=== PATIENT | female | born 1950 | race Two or more races ===

== ENCOUNTER 2017-03-26 17:38 | Inpatient (IN) | payer MEDICAID, OTHER ==
[~2017-03-26] VITALS: Ht 154.9 cm; Wt 68.0 kg
[~2017-03-26 17:38] MED LIST: ASPI81TA2 PO; ATOR40TA PO; CARV3.12 PO; LANS30CA62 PO; LEVOTHYROXINE SODIUM 25 MCG TABLET PO SCH; OMEG-9 PO; VALS160T2 PO
--- NOTE | 2017-03-26 17:38 | NUR ---
PEYTON BAIN DUE TO WEAKNESS, PATIENT IS AAO3, UKRAINIAN SPEAKING ONLY. APPEARS IN NO APPRENT DISTRESS, RESPIRATION EVEN AND UNLABORED. PATIENT DENIES CHEST PAIN. SATING WELL ON ROOM AIR. REPORTED NAUSEA, DENIES VOMITTING,. SKIN IS WARM TO TOUCH AND NON DIAPHORETIC. PATIENT IS AFEBRILE. VSS, GOWNED AND PLACED PT ON TELE MONITOR. PENDING MD DE GUZMAN
--- NOTE | 2017-03-26 17:40 | NUR ---
IV ACCESSED TO LAC 20. BLOOD SAMPLE SENT TO LAB
[2017-03-26 17:55] LABS: BASOPHILS % (AUTO) 0.4 % (0.0-2.0); EOSINOPHILS # (AUTO) 0.4 /CMM (0.0-0.7); EOSINOPHILS % (AUTO) 4.6 % (0.0-6.0); HEMATOCRIT 33 % (33-45); HEMOGLOBIN 10.8 g/dL (11.5-14.8); LYMPHOCYTES # (AUTO) 1.9 /CMM (0.8-4.8); LYMPHOCYTES % (AUTO) 20.8 % (20.0-44.0); MEAN CORPUSCULAR HEMOGLOBIN 28 PG (26.0-33.0); MEAN CORPUSCULAR HGB CONC 33 g/dl (31.0-36.0); MEAN CORPUSCULAR VOLUME 85 fL (82-100); MONOCYTES # (AUTO) 0.3 /CMM (0.1-1.30); MONOCYTES % (AUTO) 3.3 % (2.0-12.0); NEUTROPHILS # (AUTO) 6.6 /CMM (1.8-8.9); NEUTROPHILS % (AUTO) 70.9 % (43.0-81.0); PLATELET COUNT (AUTO) 287 /CMM (150-450); RDW COEFFICIENT OF VARIATION 13.5 (11.5-15.0); RED BLOOD CELL COUNT(AUTO) 3.91 MIL/uL (4.0-5.2); WHITE BLOOD COUNT (AUTO) 9.2 K/uL (4.3-11.0)
[2017-03-26 18:05] LABS: CALCIUM, SERUM 8.1 mg/dL (8.5-10.1); CREATININE 3.6 mg/dL (0.6-1.3); POTASSIUM 4.3 mmol/L (3.5-5.1)
[2017-03-26 18:13] LABS: INR 0.94 (0.87-1.13); PROTHROMBIN TIME 9.8 SECS (9.5-12.7)
[2017-03-26 18:17] LABS: BILIRUBIN,TOTAL 0.2 mg/dL (0.2-1.0); TOTAL PROTEIN, SERUM 6.4 g/dL (6.4-8.2)
--- NOTE | 2017-03-26 18:54 | NUR ---
URINE SAMPLE SENT TO LAB
[2017-03-26] MEDS ORDERED: hydrALAZINE HCL IV 20 MG VIAL ONE ×2 (19:34→19:35)
[2017-03-26 19:43] LABS: APPEARANCE,URINE Slightly Cloudy (CLEAR); BILIRUBIN,URINE Negative (NEGATIVE); BLOOD, URINE Moderate Ery/uL (NEGATIVE); COLOR,URINE Light yellow (YELLOW); KETONES,URINE Negative (NEGATIVE); LEUKOCYTE ESTERASE ,URINE Negative (NEGATIVE); NITRITE, URINE Negative (NEGATIVE); PROTEIN,URINE >=300 mg/dl (NEGATIVE); UROBILINOGEN,URINE 0.2 EU/dL (0.2)
[2017-03-26 19:48] LABS: UGLUCOSE 100 MG/DL mg/dL (NEGATIVE)
[2017-03-26 20:00] LABS: ADD URINE CULTURE YES; BACTERIA,URINE Many /HPF (None Seen); SQUAMOUS EPITHELIAL CELL,UR Few /HPF (None Seen); URINE AMORPHOUS URATE Moderate /HPF (None Seen); WBC,URINE 21-50 /HPF (0-3)
[2017-03-26] MEDS ORDERED: hydrALAZINE HCL IV 20 MG VIAL IV ONE (20:00)
--- NOTE | 2017-03-26 20:35 | NUR ---
Report given to ronaldo hernandez for admission.
--- NOTE | 2017-03-26 21:07 | NUR ---
PAGED DR HERNANDEZ
[2017-03-26] MEDS ORDERED: ONDANSETRON HCL/PF 4 MG/2 ML VIAL ONE (21:18)
--- NOTE | 2017-03-26 21:24 | NUR ---
zofran 4mg ivp given on the lac g20 for nausea per verbal order of dr Israel.
[2017-03-26 21:35] VITALS: BP 138/84
--- NOTE | 2017-03-26 21:35 | NUR ---
COUPON MANIFEST CLERK NOTES RECEIVED PT FROM ER VIA WC. A/O X 3 , LUXEMBOURGISH SPEAKING. AND STEP DAUGHTER AT BED SIDE. PT WITH NO DISTRESS, NO SOB NOTED AT THIS TIME. PT IS AMBULATORY. IV SITE ON LAC G# 20, INTACT AND PATENT, NO S/S OF INFILTRATION NOTED. BODY ASSESSMENT DONE. DENIES ANY PAIN OR DISCOMFORT AT THIS TIME. ALL NEEDS ATTENDED . KEPT COMFORTABLE. SAFETY PRECAUTIONS OBSERVED. CALL LIGHT WITHIN REACH . WILL CONTINUE TO MONITOR.
[2017-03-26] MEDS ORDERED: ZOLPIDEM TARTRATE 5 MG TABLET PO PRN (22:00)
[2017-03-26] MEDS ORDERED: CEFTRIAXONE 1 G in IV D5W 50 ML IV SCH (22:00)
[2017-03-26] MEDS ORDERED: MAGNESIUM HYDROXIDE 30 ML UDC PO PRN (22:00)
[2017-03-26] MEDS ORDERED: ONDANSETRON HCL/PF 4 MG/2 ML VIAL IVP PRN (22:00)
[2017-03-26] MEDS ORDERED: MAG HYDROX/AL HYDROX/SIMETH 30 ML UDC PO PRN (22:00)
[2017-03-26] MEDS ORDERED: Z GUARD REMEDY 2 OZ OINT TP PRN (22:00)
[2017-03-26] MEDS ORDERED: ACETAMINOPHEN 325 MG TABLET PO PRN (22:00)
[2017-03-26] MEDS ORDERED: HYDROCODONE/APAP 5/325MG 1 EACH TABLET PO PRN (22:00)
[2017-03-26] MEDS ORDERED: PANTOPRAZOLE 40 MG TABLET.DR PO ONE (22:25)
[2017-03-26] MEDS ORDERED: IV D5W 50 ML IV ONE (22:26)
[2017-03-26] MEDS ORDERED: CEFTRIAXONE 1 G VIAL ONE (22:26)
[2017-03-26] MEDS ORDERED: IV NS 0.9% 1,000 ML ONE (22:27)
[2017-03-26] MEDS ORDERED: SECONDARY IV SET 1 EA INFUS.SET MC ONE (22:27)
[2017-03-26] MEDS ORDERED: IV SET PRIMARY PUMP SET 1 EA INFUS.SET MC ONE (22:27)
[2017-03-26] MEDS: IV NS 0.9% 1,000 ML IV PRN (22:54)
[2017-03-26] MEDS: PANTOPRAZOLE 40 MG TABLET.DR PO SCH (22:54)
[2017-03-27] VITALS (9 sets, daily range): BP systolic 133–167; BP diastolic 71–84
--- NOTE | 2017-03-27 06:26 | NUR ---
LCPC NOTES PT IN BED ASLEEP AT THIS TIME, AROUSES EASILY. A/O X 3 , FAROESE SPEAKING. PT WITH NO DISTRESS, NO SOB NOTED AT THIS TIME. PT IS AMBULATORY. IV SITE ON LAC G# 20, INTACT AND PATENT, NO S/S OF INFILTRATION NOTED. NO S/S OF HYPO/ HYPERGLYCEMIA NOTED. DENIES ANY PAIN OR DISCOMFORT AT THIS TIME. ALL NEEDS ATTENDED . KEPT COMFORTABLE. SAFETY PRECAUTIONS OBSERVED. CALL LIGHT WITHIN REACH . WILL ENDORSE TO NEXT SHIFT FOR JOSE.
[2017-03-27 06:36] LABS: BASOPHILS % (AUTO) 0.5 % (0.0-2.0); EOSINOPHILS # (AUTO) 0.4 /CMM (0.0-0.7); EOSINOPHILS % (AUTO) 4.8 % (0.0-6.0); HEMATOCRIT 29 % (33-45); HEMOGLOBIN 9.3 g/dL (11.5-14.8); LYMPHOCYTES # (AUTO) 1.7 /CMM (0.8-4.8); LYMPHOCYTES % (AUTO) 21.6 % (20.0-44.0); MEAN CORPUSCULAR HEMOGLOBIN 28 PG (26.0-33.0); MEAN CORPUSCULAR HGB CONC 32 g/dl (31.0-36.0); MEAN CORPUSCULAR VOLUME 86 fL (82-100); MONOCYTES # (AUTO) 0.4 /CMM (0.1-1.30); MONOCYTES % (AUTO) 5.1 % (2.0-12.0); NEUTROPHILS # (AUTO) 5.3 /CMM (1.8-8.9); PLATELET COUNT (AUTO) 249 /CMM (150-450); RDW COEFFICIENT OF VARIATION 14.5 (11.5-15.0); RED BLOOD CELL COUNT(AUTO) 3.37 MIL/uL (4.0-5.2); WHITE BLOOD COUNT (AUTO) 7.8 K/uL (4.3-11.0)
[2017-03-27 07:08] LABS: CALCIUM, SERUM 7.6 mg/dL (8.5-10.1); CREATININE 3.4 mg/dL (0.6-1.3); PHOSPHORUS 4.1 mg/dL (2.5-4.9); THYROID STIMULATING HORMONE 19.3 uIU/mL (0.358-3.74)
--- NOTE | 2017-03-27 07:30 | NUR ---
SCHOOL ADMINISTRATOR NOTES RECIEVE PT IN BED ASLEEP, AROUSES EASILY. A/O X 3 , MALDIVIAN SPEAKING. ON RA WITH NO DISTRESS, NO SOB NOTED AT THIS TIME. TELEMETRY READS SR HR 81, DENIES ANY DISCOMFORT, WITH NS @ 100 ML/HR TO LEFT AC 20G IV ACCESS, SITE CLEAR. ON CLEAR LIQUID DIET, AMBULATORY, DISCUSS PLAN OF CARE, VERBALIZED UNDERSTANDING WITH WEDDING COORDINATOR AT BEDSIDE. BED LOWEST POSITION AND LOCKED. SIDE RAILS UP X2, CALL LIGHT WITHIN REACH, WILL CONTINUE TO MONITOR..
[2017-03-27] MEDS: PANTOPRAZOLE 40 MG TABLET.DR PO SCH (08:54)
[2017-03-27] MEDS: CARVEDILOL 3.125 MG TABLET PO SCH ×2 (08:59→17:09)
[2017-03-27] MEDS ORDERED: [UNRECOGNIZED DRUG - OTHER] PO SCH (09:00)
[2017-03-27] MEDS ORDERED: OMEGA PO SCH (09:00)
[2017-03-27] MEDS ORDERED: DHA PO SCH (09:00)
[2017-03-27] MEDS ORDERED: FISH OIL PO SCH (09:00)
[2017-03-27] MEDS ORDERED: VALSARTAN 80 MG TABLET PO SCH (09:00)
[2017-03-27] MEDS ORDERED: EPA PO SCH (09:00)
[2017-03-27] MEDS: ASPIRIN 81 MG TAB.CHEW PO SCH (09:03)
--- NOTE | 2017-03-27 09:30 | NUR ---
MS RN NOTE D/C TELEMETRY @ [address] BRIZUELA. ADMINISTERED DUE MEDS.
[2017-03-27] MEDS: IV NS 0.9% 1,000 ML IV PRN ×2 (10:38→21:31)
[2017-03-27] MEDS ORDERED: FURO-145 PO (11:05)
[2017-03-27] MEDS ORDERED: LOSA50TA21 PO (11:05)
[2017-03-27] MEDS ORDERED: PENT400T2 PO (11:05)
[2017-03-27] MEDS: ATORVASTATIN 40 MG TABLET PO SCH (17:05)
--- NOTE | 2017-03-27 18:39 | NUR ---
MS RN CLOSING NOTES PT RESTING IN BED. A/O X 4. ON RA WITH NO DISTRESS. DENIES ANY DISCOMFORT, WITH NS @ 100 ML/HR TO LEFT AC 20G IV ACCESS, SITE CLEAR. ON CLEAR LIQUID DIET, AMBULATORY. BED LOWEST POSITION AND LOCKED. SIDE RAILS UP X2, CALL LIGHT WITHIN REACH, ALL NEEDS MET. WILL ENDORSE TO NEXT SHIFT FOR CONTINUITY OF CARE...
--- NOTE | 2017-03-27 19:20 | NUR ---
MS RN NOTES RECEIVED PT IN BED, RESTING COMFORTABLY AT THIS TIME, AROUSES EASILY. A/O X 3. VERBALLY RESPONSIVE IN HEBREW. NO DISTRESS, NO SOB NOTED. ON CLEAR LIQUID DIET. IV SITE ON LAC G # 20 INTACT AND PATENT, NO S/S OF INFILTRATION NOTED. IVF INFUSING WELL. ALL NEEDS ATTENDED. DENIES ANY PAIN OR DISCOMFORT AT THIS TIME. SAFETY PRECAUTIONS OBSERVED. CALL LIGHT WITHIN REACH. WILL CONTINUE TO MONITOR.
[2017-03-27] MEDS: CEFTRIAXONE 1 G in IV D5W 50 ML IV SCH (23:28)
[2017-03-28 06:28] LABS: BASOPHILS % (AUTO) 0.6 % (0.0-2.0); EOSINOPHILS # (AUTO) 0.5 /CMM (0.0-0.7); EOSINOPHILS % (AUTO) 7.7 % (0.0-6.0); HEMATOCRIT 29 % (33-45); HEMOGLOBIN 9.2 g/dL (11.5-14.8); LYMPHOCYTES # (AUTO) 1.5 /CMM (0.8-4.8); LYMPHOCYTES % (AUTO) 20.5 % (20.0-44.0); MEAN CORPUSCULAR HEMOGLOBIN 28 PG (26.0-33.0); MEAN CORPUSCULAR HGB CONC 32 g/dl (31.0-36.0); MEAN CORPUSCULAR VOLUME 86 fL (82-100); MONOCYTES # (AUTO) 0.4 /CMM (0.1-1.30); MONOCYTES % (AUTO) 5.5 % (2.0-12.0); NEUTROPHILS # (AUTO) 4.7 /CMM (1.8-8.9); NEUTROPHILS % (AUTO) 65.7 % (43.0-81.0); PLATELET COUNT (AUTO) 229 /CMM (150-450); RED BLOOD CELL COUNT(AUTO) 3.33 MIL/uL (4.0-5.2); WHITE BLOOD COUNT (AUTO) 7.1 K/uL (4.3-11.0)
--- NOTE | 2017-03-28 06:44 | NUR ---
MS RN NOTES PT IN BED, ASLEEP AT THIS TIME, AROUSES EASILY. A/O X 3. VERBALLY RESPONSIVE IN [place]. NO DISTRESS, NO SOB NOTED. REMAINS ON CLEAR LIQUID DIET. IV SITE ON LAC G # 20 INTACT AND PATENT, NO S/S OF INFILTRATION NOTED. IVF INFUSING WELL. ALL NEEDS ATTENDED. DENIES ANY PAIN OR DISCOMFORT AT THIS TIME. ABLE TO VOID FREELY WITH YELLOW URINE, NO DYSURIA NOTED. SAFETY PRECAUTIONS OBSERVED. CALL LIGHT WITHIN REACH. WILL ENDORSE TO NEXT SHIFT FOR JOSE.
[2017-03-28 06:55] LABS: CALCIUM, SERUM 7.3 mg/dL (8.5-10.1); CREATININE 3.4 mg/dL (0.6-1.3); MAGNESIUM 1.8 mg/dL (1.8-2.4); PHOSPHORUS 4.5 mg/dL (2.5-4.9); POTASSIUM 4.1 mmol/L (3.5-5.1)
--- NOTE | 2017-03-28 07:40 | NUR ---
AM RN NOTE Received patient sleeping comfortably in her bed arouses upon touch. Skin warm and dry to touch. IV site intact and patent. Bed in low locked position. Will continue to monitor.
[2017-03-28 08:00] VITALS: BP 163/91
[2017-03-28] MEDS: CARVEDILOL 3.125 MG TABLET PO SCH ×2 (08:14→16:35)
[2017-03-28] MEDS: PANTOPRAZOLE 40 MG TABLET.DR PO SCH (08:14)
[2017-03-28] MEDS: ASPIRIN 81 MG TAB.CHEW PO SCH (08:14)
--- NOTE | 2017-03-28 10:08 | NUR ---
WOUND CARE CONSULT: PT SEEN FOR TOENAILS PER WOUND CONSULT. PRESENTS WITH LIU SCORE OF 20. PT NOTED TO HAVE THICKENED TOENAILS WHICH HAVE BEEN CARED FOR BY SIMULATION TECHNICIAN. LEFT GREAT TOENAIL NOTED TO HAVE PURPLE STAIN. NO TENDERNESS NOTED. PT STATES IS SEEING HER OWN SIMULATION TECHNICIAN. WILL SEE PRN.
[2017-03-28] MEDS ORDERED: LEVOTHYROXINE SODIUM 100 MCG TABLET PO ONE (11:00)
[2017-03-28] MEDS ORDERED: LEVO25TA9 PO (11:26)
[2017-03-28 16:00] VITALS: BP 184/87
[2017-03-28] MEDS: ATORVASTATIN 40 MG TABLET PO SCH (16:45)
[2017-03-28] MEDS: CLONIDINE HCL 0.1 MG TABLET PO PRN (16:45)
--- NOTE | 2017-03-28 16:50 | NUR ---
AM RN NOTE Patient awake, denies any pain or discomfort at this time. V/S BP184/87 T97.6 P64 R16. Routine Coreg given as ordered and called Trav NETWORK ARCHITECT with new order obtained for Catapres, noted and carried out. Catapres PO given as ordered, will monitor for effectiveness.
[2017-03-28] MEDS: IV NS 0.9% 1,000 ML IV PRN (17:15)
--- NOTE | 2017-03-28 17:45 | NUR ---
AM RN NOTE BP rechecked 164/82. Pt denies any pain or discomfort at this time.
--- NOTE | 2017-03-28 18:39 | NUR ---
AM RN NOTE Patient lying in her bed watching TV no acute distress noted. Will endorse care to next shift.
--- NOTE | 2017-03-28 19:00 | NUR ---
MS RN NOTES RECEIVED PATIENT IN BED AWAKE, ALERT AND ORIENTED X 3. IN STABLE CONDITION NO S/S OF DISTRESS NOTED. VERBALLY RESPONSIVE WITH NO C/O PAIN OR DISCOMFORTS VOICED. IV SITE INTACT W/ NO S/S OF INFILTRATION NOTED. CALL LIGHT WITHIN REACH. BED AT LOW POSITION AND LOCKED FOR SAFETY. WILL CONTINUE TO MONITOR ACCORDINGLY.
[2017-03-28 20:00] VITALS: BP 197/89
[2017-03-28 20:30] VITALS: BP 168/74
[2017-03-28] MEDS: CEFTRIAXONE 1 G in IV D5W 50 ML IV SCH (22:35)
[2017-03-29] MEDS: CLONIDINE HCL 0.1 MG TABLET PO PRN ×3 (05:34→23:14)
--- NOTE | 2017-03-29 06:33 | NUR ---
MS RN CLOSING NOTES PATIENT COMFORTABLY IN BED ASLEEP AND EASILY AWAKEN, HEAD OF BED ELEVATED FOR BETTER LUNG EXPANSION AND BETTER CIRCULATION, TOLERATING ROOM AIR, SP02 96% R.A ALERT AND VERBALLY X 3 NO S/S OF DISTRESS, SINGAPOREAN SPEAKING, NS AT 100CC/HR RUNNING TOLERATED WELL, IV SITE INTACT W/ NO S/S OF INFILTRATION NOTED. RESPIRATIONS EVEN UNLABORED BREATH SOUNDS. APICAL PULSE REGULAR; GOOD SKIN CARE PROVIDED. PATIENT IN STABLE CONDITION WITH NO SOB NO S/S OF DISTRESS NO NAUSEA AND VOMITING NO HEADACHE NO PAIN, NO CHEST PAIN SAFETY ENVIRONMENT PROVIDED. FREE OF CLUTTERS, SAFE HAZARD FREE ENVIRONMENT. NEEDS ATTENDED AND ANTICIPATED, NURSING CARE RENDERED, KEPT CLEAN AND DRY AND COMFORTABLE. ALL DUE MEDS WAS GIVEN. CALL LIGHT IN REACH, BED LOWERED AND LOCKED, SR X2 FOR SAFETY AND WILL ENDORSE CONTINUE PLAN OF CARE. ON ATB WITH NO A/R NOTED.
[2017-03-29 06:36] LABS: BASOPHILS % (AUTO) 0.5 % (0.0-2.0); EOSINOPHILS # (AUTO) 0.6 /CMM (0.0-0.7); EOSINOPHILS % (AUTO) 8.6 % (0.0-6.0); HEMATOCRIT 30 % (33-45); HEMOGLOBIN 9.6 g/dL (11.5-14.8); LYMPHOCYTES # (AUTO) 1.6 /CMM (0.8-4.8); LYMPHOCYTES % (AUTO) 23.6 % (20.0-44.0); MEAN CORPUSCULAR HEMOGLOBIN 28 PG (26.0-33.0); MEAN CORPUSCULAR HGB CONC 33 g/dl (31.0-36.0); MEAN CORPUSCULAR VOLUME 86 fL (82-100); MONOCYTES # (AUTO) 0.4 /CMM (0.1-1.30); MONOCYTES % (AUTO) 5.5 % (2.0-12.0); NEUTROPHILS # (AUTO) 4.1 /CMM (1.8-8.9); NEUTROPHILS % (AUTO) 61.8 % (43.0-81.0); PLATELET COUNT (AUTO) 216 /CMM (150-450); RDW COEFFICIENT OF VARIATION 14.1 (11.5-15.0); RED BLOOD CELL COUNT(AUTO) 3.47 MIL/uL (4.0-5.2); WHITE BLOOD COUNT (AUTO) 6.6 K/uL (4.3-11.0)
[2017-03-29 06:53] LABS: BILIRUBIN,TOTAL 0.2 mg/dL (0.2-1.0); CALCIUM, SERUM 7.6 mg/dL (8.5-10.1); CREATININE 3.2 mg/dL (0.6-1.3); MAGNESIUM 1.9 mg/dL (1.8-2.4); PHOSPHORUS 4.7 mg/dL (2.5-4.9); POTASSIUM 4.4 mmol/L (3.5-5.1); TOTAL PROTEIN, SERUM 5.2 g/dL (6.4-8.2)
[2017-03-29 07:11] LABS: ALBUMIN 1.4 g/dL (3.4-5.0)
--- NOTE | 2017-03-29 07:18 | NUR ---
recent albumin was endorse to the next rn to report MD
--- NOTE | 2017-03-29 07:45 | NUR ---
RN MS NOTES PATIENT IN BED, ALERT AND ORIENTED, THAI SPEAKING, NO COMPLAINT OF PAIN OR DISCOMFORT, ALBUMIN RESULT RELAYED TO KELLIE BARRERA AND RECEIVED NO NEW ORDER AT THIS TIME, PER CHRO, ENCOURAGE PATIENT TO EAT MEALS.
[2017-03-29 08:00] VITALS: BP 175/81
[2017-03-29] MEDS: PANTOPRAZOLE 40 MG TABLET.DR PO SCH (08:12)
[2017-03-29] MEDS: LEVOTHYROXINE SODIUM 25 MCG TABLET PO SCH (08:13)
[2017-03-29] MEDS: ASPIRIN 81 MG TAB.CHEW PO SCH (08:13)
[2017-03-29] MEDS: CARVEDILOL 3.125 MG TABLET PO SCH ×2 (08:13→17:07)
--- NOTE | 2017-03-29 14:15 | NUR ---
RN MS NOTES BLOOD PRESSURE OBTAINED WITH RESULT OF 190/86 PULSE 65, CLONIDINE 0.1MG GIVEN, PATIENT DENIES ANY CHEST PAIN NOR HEADACHE, KELLIE BARRERA NP MADE AWARE.
[2017-03-29 16:00] VITALS: BP 187/95
[2017-03-29] MEDS: ATORVASTATIN 40 MG TABLET PO SCH (17:07)
--- NOTE | 2017-03-29 17:50 | NUR ---
RN MS NOTES KELLIE BARRERA SEEN AND EXAMINED THE PATIENT, INFORMED OF BLOOD PRESSURE 187/95 PULSE 60 AFTER CLONIDINE, PER RIPRAP MAN, CONTINUE TO MONITOR AND CONTINUE HYDRATION PER DR. LANDAVERDE'S ORDER, IV HEPLOCK REINSERTED ON RIGHT FA #22, IVF INFUSING AT 100ML/HR, PATIENT IS NO DISTRESS AT THIS TIME, NEEDS ATTENDED AND MET, CALL LIGHT WITHIN REACH, WILL CONTINUE TO MONITOR.
--- NOTE | 2017-03-29 18:41 | NUR ---
RN MS NOTES PATIENT IN BED, IN STABLE CONDITION, NO DISTRESS NOTED, NO COMPLAINT OF CHEST PAIN OR HEADACHE, IVF INFUSING AND TOLERATING WELL, CALL LIGHT WITHIN REACH, SAFETY MEASURES IN PLACED, WILL ENDORSE TO CITY PLANNING TEACHER FOR JOSE.
--- NOTE | 2017-03-29 19:01 | NUR ---
RN MS NOTES PATIENT REPORTED SHE HAS LOOSE STOOLS X4, KELLIE CREW MESS ATTENDANT MADE AWARE WITH NEW ORDER TO SEND A SAMPLE FOR C. DIFF, ORDER NOTED AND CARRIED OUT.
--- NOTE | 2017-03-29 19:30 | NUR ---
RN NOTES: RECEIVED LYING COMFORTABLY IN BED, ALERT AND ORRIENTEDX3, [place] VERDEAN SPEAKING,IVF ON N/S AT 100ML/HR ONGOING,LAC G#20 PATENT AND INTACT, CALL LIGHT WITHIN EASY REACH, BED LOW AND LOCKED, FALL SAFETY AND ASPIRATION PRECAUTION OBSERVE.INSTRUCT ELECTROPLATER HELPER TO COLLECT SPECIMEN FOR STOOL EXAM.ON CLOSE WATCH.
[2017-03-29 19:33] LABS: APPEARANCE,URINE CLEAR (CLEAR); BILIRUBIN,URINE NEGATIVE (NEGATIVE); BLOOD, URINE 1+ Ery/uL (NEGATIVE); COLOR,URINE YELLOW (YELLOW); KETONES,URINE NEGATIVE (NEGATIVE); LEUKOCYTE ESTERASE ,URINE NEGATIVE (NEGATIVE); NITRITE, URINE NEGATIVE (NEGATIVE); PROTEIN,URINE 3+ mg/dl (NEGATIVE); UGLUCOSE 1+ mg/dL (NEGATIVE); UROBILINOGEN,URINE 0.2 EU/dL (0.2)
[2017-03-29 20:00] VITALS: BP 191/87
[2017-03-29 20:06] LABS: ADD URINE CULTURE NO; BACTERIA,URINE Rare /HPF (None Seen); CREATININE, URINE 38.6 MG/DL (30.0-125.0); SQUAMOUS EPITHELIAL CELL,UR 0-2 /HPF (None Seen); YEAST,URINE Few /HPF (None Seen)
[2017-03-29 20:21] LABS: URINE TOTAL PROTEIN 498.7 mg/dL (0-11.9)
[2017-03-29 20:30] VITALS: BP 200/88
[2017-03-29] MEDS ORDERED: hydrALAZINE HCL 25 MG TABLET PO PRN (20:45)
--- NOTE | 2017-03-29 20:54 | NUR ---
RN NOTES: BP RECHECKED 2X,BP-227/104 AZ-58,SAPPHIRE AGUILAR NOTIFIED, ORDER TO START IMMEDIATELY HYDRALAZINE 25MG PO Q6H PRN FOR HIGH BP,GIVEN.
--- NOTE | 2017-03-29 21:15 | NUR ---
RN NOTES: STOOL SPECIMEN SEND TO LAB FOR C.DIFF TEST.
[2017-03-29 21:38] LABS: EOSINOPHIL,URINE None Seen
[2017-03-29] MEDS: CEFTRIAXONE 1 G in IV D5W 50 ML IV SCH (22:29)
--- NOTE | 2017-03-29 22:29 | NUR ---
RN NOTES: AWAKE IN BETWEEN,ABLE TO COLLECT SPECIMEN FOR STOOL EXAM,SEND TO LAB. LATEST BP-191/87 COMPLAINED OF GENERALIZED PAIN 4/10,NON PHARMACOLOGIC INTERVENTION RENDERED,PRN PAIN MEDICATION GIVEN,CALL LIGHT WITHIN REACH, KEPT ON CLOSE WATCH.
--- NOTE | 2017-03-29 23:15 | NUR ---
RN NOTES: -MORNING CARE DONE, PAMPERS CHANGE,KEPT COMFORTABLE IN BED. -NO MORE PAIN AND DISCOMFORT,NO DIZZINESS,NO LIGHTHEADEDNESS, BP RE CHEDKED-205/96 MS 60,CN NOTIFIED,CATAPRES PRN GIVEN.
--- NOTE | 2017-03-29 23:50 | NUR ---
RN NOTES: NOTIFIED PATIENT IS HAVING 4X DIARRHEA AND REQUESTING FOR IMODIUM,BP IS STILL HIGH DESPITE HYDRALAZINE AND CATAPRES GIVEN,LATEST BP-209/98,HYDRALAZINE CHANGE FROM PRN FOR Q6H SCHEDULE,ADDED AMLODIPINE 10 MG Q DAILY AND D/C IV FLUIDS, NOTED AND CARRIED OUT.
[2017-03-30] MEDS ORDERED: LOPERAMIDE HCL (2 MG CAP) 2 MG CAPSULE PO ONE ×2 (00:12→00:30)
--- NOTE | 2017-03-30 00:19 | NUR ---
RN NOTES: DIARRHEA 4X ALREADY, NOTIFIED,IMODIUM 4MG STAT GIVEN PER PATIENT REQUEST.KEPT COMFORTABLE IN BED.
[2017-03-30] MEDS ORDERED: hydrALAZINE HCL 25 MG TABLET ONE (01:36)
[2017-03-30] MEDS: hydrALAZINE HCL 25 MG TABLET PO SCH ×3 (02:02→12:00)
--- NOTE | 2017-03-30 02:04 | NUR ---
RN NOTES: BP-212/94 AZ-59,HYDRALZAINE Q6H GIVEN,PATIENT HAS NO COMPLAINTSOF ANY PAIN OR DISCOMFORT,SLEEPING AT SHORT INTERVALS.CLAIMED SHE FELT BETTER AFTER THE IMODIUM.WILL CONTINUE TO MONITOR BP.
--- NOTE | 2017-03-30 03:11 | NUR ---
RN NOTES: NO MORE DIARRHEA, ABLE TO SLEEP AT SHORT INTERVALS,LATEST BP-192/88,NO HEADACHE, NO BLURRING OF VISION,NO DISCOMFORT.KEPT ON CLOSE WATCH.CALL LIGHT WITHIN REACH.
[2017-03-30 05:08] VITALS: BP 182/88
--- NOTE | 2017-03-30 05:09 | NUR ---
RN NOTES: ASLEEP IN BED,LATEST V/S CHECKED BP-182/88 WI-62 RR-20 T-97.8,ABLE TO REST.NO COMPLAINTS OF PAIN.BED LOW AND LOCKED.
[2017-03-30] MEDS ORDERED: hydrALAZINE HCL 25 MG TABLET PO SCH (06:00)
[2017-03-30 06:35] LABS: BASOPHILS % (AUTO) 0.4 % (0.0-2.0); EOSINOPHILS # (AUTO) 0.5 /CMM (0.0-0.7); EOSINOPHILS % (AUTO) 6.9 % (0.0-6.0); HEMATOCRIT 29 % (33-45); HEMOGLOBIN 9.5 g/dL (11.5-14.8); LYMPHOCYTES # (AUTO) 1.6 /CMM (0.8-4.8); LYMPHOCYTES % (AUTO) 22.6 % (20.0-44.0); MEAN CORPUSCULAR HEMOGLOBIN 28 PG (26.0-33.0); MEAN CORPUSCULAR HGB CONC 33 g/dl (31.0-36.0); MEAN CORPUSCULAR VOLUME 85 fL (82-100); MONOCYTES # (AUTO) 0.3 /CMM (0.1-1.30); NEUTROPHILS # (AUTO) 4.5 /CMM (1.8-8.9); NEUTROPHILS % (AUTO) 65.1 % (43.0-81.0); PLATELET COUNT (AUTO) 203 /CMM (150-450); RED BLOOD CELL COUNT(AUTO) 3.38 MIL/uL (4.0-5.2); WHITE BLOOD COUNT (AUTO) 6.9 K/uL (4.3-11.0)
[2017-03-30 06:55] LABS: BILIRUBIN,TOTAL 0.1 mg/dL (0.2-1.0); CALCIUM, SERUM 7.7 mg/dL (8.5-10.1); MAGNESIUM 1.9 mg/dL (1.8-2.4); PHOSPHORUS 5.1 mg/dL (2.5-4.9); POTASSIUM 4.3 mmol/L (3.5-5.1); TOTAL PROTEIN, SERUM 5.1 g/dL (6.4-8.2)
--- NOTE | 2017-03-30 06:58 | NUR ---
RN NOTES: ASLEEP,KEPT ON OBSERVATION,NO DISCOMFORT,NO DIARRHEA,ENDORSE TO MONITOR BP AND CHANGE OF CONDITION.CALL LIGHT WITHIN REACH, BED LOW AND LOCKED.SR UPX3.
--- NOTE | 2017-03-30 07:20 | NUR ---
MS RN OPENING NOTERS RECEIVED PT. FROM NIGHTSHIFT NURSE IN STABLE CONDITION. A/O X3. [place] R[place] SPEAKING. NO SOB OR SIGNS OF DISTRESS NOTED. DENIES ANY PAIN AT THIS TIME. IV ON LEFT AC 20 NG INTACT AND PATENT. NO REDNESS OR SIGNS OF INFILTRATION NOTED. BED IN LOW LOCKED POSITION, SIDE RAILS UP X2, CALL LIGHT WITHIN REACH. WILL CONTINUE TO MONITOR.
[2017-03-30 07:41] LABS: ALBUMIN 1.4 g/dL (3.4-5.0)
[2017-03-30 07:43] LABS: APPEARANCE,URINE CLEAR (CLEAR); BILIRUBIN,URINE NEGATIVE (NEGATIVE); BLOOD, URINE 1+ Ery/uL (NEGATIVE); COLOR,URINE YELLOW (YELLOW); KETONES,URINE NEGATIVE (NEGATIVE); LEUKOCYTE ESTERASE ,URINE NEGATIVE (NEGATIVE); NITRITE, URINE NEGATIVE (NEGATIVE); PROTEIN,URINE 3+ mg/dl (NEGATIVE); UGLUCOSE 1+ mg/dL (NEGATIVE); UROBILINOGEN,URINE 0.2 EU/dL (0.2)
[2017-03-30 07:55] LABS: ADD URINE CULTURE NO; BACTERIA,URINE Rare /HPF (None Seen); SQUAMOUS EPITHELIAL CELL,UR 0-2 /HPF (None Seen); WBC,URINE 0-2 /HPF (0-3)
--- NOTE | 2017-03-30 07:59 | NUR ---
MS RN NOTES PT.S BP WAS 199/96. KELLIE THE RECORDS MANAGEMENT COORDINATOR WAS NOTIFIED. HE ASKED THAT PT. BE REPOSITIONED TO SIT IN THE CHAIR DURING HER BREAKFASTS AND RECHECK HER BP. WILL CONTINUE TO MONITOR.
[2017-03-30 08:00] VITALS: BP 199/96
--- NOTE | 2017-03-30 08:23 | NUR ---
MS RN NOTES PT'S BP WAS RECHECKED AND IS NOW 125/74. KELLIE WAS NOTIFIED AND ASKED THAT HER HYDRALAZINE BE HELD.
[2017-03-30] MEDS: ASPIRIN 81 MG TAB.CHEW PO SCH (08:28)
[2017-03-30] MEDS: CARVEDILOL 3.125 MG TABLET PO SCH (08:28)
[2017-03-30] MEDS: LEVOTHYROXINE SODIUM 25 MCG TABLET PO SCH (08:28)
[2017-03-30] MEDS: PANTOPRAZOLE 40 MG TABLET.DR PO SCH (08:29)
[2017-03-30] MEDS ORDERED: AMLODIPINE BESYLATE 10 MG TABLET PO SCH (09:00)
[2017-03-30 09:10] VITALS: BP 125/74
[2017-03-30 09:29] LABS: CREATININE, URINE 23.2 MG/DL (30.0-125.0)
[2017-03-30 09:40] LABS: EOSINOPHIL,URINE None Seen
[2017-03-30 09:58] LABS: URINE TOTAL PROTEIN 375.9 mg/dL (0-11.9)
[2017-03-30 10:24] LABS: CREATINE KINASE MB 4.6 ng/mL (0-3.6)
--- NOTE | 2017-03-30 14:58 | NUR ---
MS RN NOTES PT. WAS WHEELED OFF THE UNIT IN STABLE CONDITION BY CORI. SHE WAS SAFELY TRANSFERRED FROM WHEELCHAIR TO HER PRIVATE CAR. ALL NEEDS MET DURING SHIFT AND ORDERS CARRIED OUT ACCORDINGLY.
[2017-04-01 07:08] LABS: COMPLEMENT C3, SERUM 107 mg/dL (82-167); COMPLEMENT C4, SERUM 24 mg/dL (14-44)
[2017-04-01 08:09] LABS: *SPE A/G RATIO 0.7 (0.7-1.7); *SPE ALBUMIN 1.8 g/dL (2.9-4.4); *SPE ALPHA-1-GLOBULIN 0.2 g/dL (0.0-0.4); *SPE ALPHA-2-GLOBULIN 0.8 g/dL (0.4-1.0); *SPE BETA GLOBULIN 0.9 g/dL (0.7-1.3); *SPE GLOBULIN, TOTAL 2.7 g/dL (2.2-3.9); *SPE M-SPIKE Not Observed g/dL (Not Observed); *SPE PROTEIN TOTAL 4.5 g/dL (6.0-8.5); *SPEGAMMA GLOBULIN 0.8 g/dL (0.4-1.8)
[2017-04-01 12:50] LABS: PTH, INTACT 66 pg/mL (15-65)
== END 2017-03-30 14:55 | disposition home or self-care (01) | DRG 468 ==
LOC: ER 17:43 → TELE 21:06 → MED 03-27 08:55
PROVIDERS: ADMIT Internal Medicine; ATTEND Internal Medicine
DX: I12.9 Hypertensive chronic kidney disease with stage 1 through stage 4 chronic kidney disease, or unspecified chronic kidney disease (principal); N17.0 Acute kidney failure with tubular necrosis; R53.2 Functional quadriplegia; E11.21 Type 2 diabetes mellitus with diabetic nephropathy; N39.0 Urinary tract infection, site not specified; E11.22 Type 2 diabetes mellitus with diabetic chronic kidney disease; I25.10 Atherosclerotic heart disease of native coronary artery without angina pectoris; N18.9 Chronic kidney disease, unspecified; K21.9 Gastro-esophageal reflux disease without esophagitis; E03.9 Hypothyroidism, unspecified; E78.5 Hyperlipidemia, unspecified; I25.2 Old myocardial infarction; E88.09 Other disorders of plasma-protein metabolism, not elsewhere classified; Z86.73 Personal history of transient ischemic attack (TIA), and cerebral infarction without residual deficits; Z91.14 Patient's other noncompliance with medication regimen; Z87.440 Personal history of urinary (tract) infections; K29.00 Acute gastritis without bleeding; D63.8 Anemia in other chronic diseases classified elsewhere; B96.20 Unspecified Escherichia coli [E. coli] as the cause of diseases classified elsewhere; Z79.899 Other long term (current) drug therapy; Z79.1 Long term (current) use of non-steroidal anti-inflammatories (NSAID)
CPT/HCPCS: 36415; 76770-TC; 80048-TC; 80053-TC; 80061-TC; 80076-TC; 81000-TC; 82550-TC; 82553-TC; 82570-TC; 83690-TC; 83735-TC; 83970; 84100-TC; 84155; 84155-TC; 84165; 84300-TC; 84439-TC; 84443-TC; 84480; 85025-TC; 85730-TC; 87081-TC; 87086-TC; 87186-TC; A4606; J0360; J0696; J2405; J7030; J7060; Z7610

== ENCOUNTER 2018-01-03 17:51 | Emergency (ER) | payer OTHER ==
[~2018-01-03] VITALS: Ht 152.4 cm; Wt 74.8 kg
[~2018-01-03 17:51] MED LIST changes: +ASPI-1169 PO; -ASPI81TA2 PO; +FURO-145 PO; +LEVO25TA9 PO; -LEVOTHYROXINE SODIUM 25 MCG TABLET PO SCH; +LOSA50TA21 PO; +PENT400T2 PO
--- NOTE | 2018-01-03 18:00 | NUR ---
PT AMBULATORY W/ WALKER TO ER BED 10 C/O R ELBOW R/T GUSTAVO AND SHOULDER S/P FALL 2 HOURS AGO. PT DENIES HEAD TRAUMA. UNABLE TO MOVE AFFECTED EXTREMITY. PLACED ON MONITOR. AWAITING MD DE GUZMAN.
--- NOTE | 2018-01-03 18:17 | NUR ---
JOSUE ROMERO AT BEDSIDE FOR EVAL.
[2018-01-03] MEDS ORDERED: ONDANSETRON 4 MG TAB.RAPDIS PO ONE (18:30)
[2018-01-03] MEDS ORDERED: MORPHINE SULFATE INJ 2 MG/ML DISP.SYRIN IM ONE (18:30)
[2018-01-03] MEDS ORDERED: MORPHINE SULFATE INJ 4 MG/ML DISP.SYRIN ONE (18:36)
[2018-01-03] MEDS ORDERED: ONDANSETRON 4 MG TAB.RAPDIS ONE (18:36)
--- NOTE | 2018-01-03 18:50 | NUR ---
RADIOLOGY AT BEDSIDE FOR R SHOULDER/R ELBOW XRAY.
--- NOTE | 2018-01-03 19:09 | NUR ---
PT STATES FEELING MUCH BETTER S/P MEDICATION BUT HURTS WHEN SHE MOVES AFFECTED EXTREMITY. WILL CONTINUE TO MONITOR.
--- NOTE | 2018-01-03 20:49 | NUR ---
PT PROVIDED W/ SHOULDER SLING. Patient discharged to home in stable condition. Written and verbal after care instructions given. Patient and verbalizes understanding of instruction.
[2018-01-03 20:50] VITALS: BP 132/86
== END 2018-01-03 20:51 | disposition home or self-care (01) ==
LOC: ER 17:53
DX: S42.211A Unspecified displaced fracture of surgical neck of right humerus, initial encounter for closed fracture (principal); S59.901A Unspecified injury of right elbow, initial encounter; E11.9 Type 2 diabetes mellitus without complications; I10 Essential (primary) hypertension; I25.10 Atherosclerotic heart disease of native coronary artery without angina pectoris; Z79.82 Long term (current) use of aspirin; Z99.2 Dependence on renal dialysis; W01.0XXA Fall on same level from slipping, tripping and stumbling without subsequent striking against object, initial encounter; Y93.89 Activity, other specified; Y92.89 Other specified places as the place of occurrence of the external cause; Y99.8 Other external cause status
CPT/HCPCS: 73030; 73080; 96372; 99284; A4606; J2270; Q0162; Z7610

== ENCOUNTER 2018-02-05 22:49 | Emergency (ER) | payer OTHER ==
[~2018-02-05] VITALS: Ht 160 cm; Wt 59.0 kg
[~2018-02-05 22:49] MED LIST changes: +PENT400T12 PO; -PENT400T2 PO
--- NOTE | 2018-02-05 23:20 | NUR ---
BIBSELF C/O N/V AND ABD PAIN S/P EATING SINCE FRIDAY. PT IS AAOX4. RESP EVEN AND UNLABORED. SKIN WNL. NO S/S OF ACUTE DISTRESS NOTED. PT GOWNED AND PLACED ON MONITOR AND POX. PT SAFETY AND COMFORT MEASURES IN PLACE. PT'S BEDSIDE. WILL CONITNUE TO MONITOR PT. AWAITING MD FOR EVAL.
[2018-02-05] MEDS ORDERED: MORPHINE SULFATE INJ 2 MG/ML DISP.SYRIN IV ONE (23:30)
[2018-02-05] MEDS ORDERED: IV NS 0.9% 500 ML BAG IV ONE (23:30)
[2018-02-05] MEDS ORDERED: ONDANSETRON HCL/PF 4 MG/2 ML VIAL IVP ONE (23:30)
[2018-02-05] MEDS ORDERED: MORPHINE SULFATE INJ 4 MG/ML DISP.SYRIN ONE (23:42)
[2018-02-05] MEDS ORDERED: ONDANSETRON HCL/PF 4 MG/2 ML VIAL ONE (23:42)
--- NOTE | 2018-02-05 23:53 | NUR ---
PT TO CT
[2018-02-05 23:57] LABS: BASOPHILS % (AUTO) 0.4 % (0.0-2.0); EOSINOPHILS % (AUTO) 7.6 % (0.0-6.0); HEMATOCRIT 30 % (33-45); HEMOGLOBIN 10.1 g/dL (11.5-14.8); LYMPHOCYTES # (AUTO) 1.5 /CMM (0.8-4.8); LYMPHOCYTES % (AUTO) 16.6 % (20.0-44.0); MEAN CORPUSCULAR HGB CONC 34 g/dl (31.0-36.0); MEAN CORPUSCULAR VOLUME 85 fL (82-100); MONOCYTES # (AUTO) 0.5 /CMM (0.1-1.30); MONOCYTES % (AUTO) 5.1 % (2.0-12.0); NEUTROPHILS # (AUTO) 6.2 /CMM (1.8-8.9); NEUTROPHILS % (AUTO) 70.3 % (43.0-81.0); PLATELET COUNT (AUTO) 328 /CMM (150-450); RDW COEFFICIENT OF VARIATION 14.1 (11.5-15.0); RED BLOOD CELL COUNT(AUTO) 3.55 MIL/uL (4.0-5.2); WHITE BLOOD COUNT (AUTO) 8.9 K/uL (4.3-11.0)
[2018-02-06 00:09] LABS: CALCIUM, SERUM 8.1 mg/dL (8.5-10.1); CARBON DIOXIDE 30 mmol/L (21-32); CHLORIDE 93 mmol/L (98-107); CREATININE 4.7 mg/dL (0.6-1.3); GLUCOSE 126 mg/dL (74-106); POTASSIUM 3.4 mmol/L (3.5-5.1); SODIUM SERUM 130 mmol/L (136-145); UREA NITROGEN, BLOOD 25 mg/dL (7-18)
[2018-02-06 00:12] LABS: INR 0.95 (0.87-1.13)
[2018-02-06 00:16] LABS: ALANINE AMINOTRANSFERASE 24 U/L (12-78); ALBUMIN 2.7 g/dL (3.4-5.0); ALKALINE PHOSPHATASE 162 U/L (46-116); ASPARTATE AMINOTRANSFERASE 18 U/L (15-37); BILIRUBIN,DIRECT 0.1 mg/dL (0.0-0.2); BILIRUBIN,TOTAL 0.4 mg/dL (0.2-1.0); LIPASE 134 U/L (73-393); TOTAL PROTEIN, SERUM 7.2 g/dL (6.4-8.2); TROPONIN I < 0.017 ng/mL (0.00-0.056)
[2018-02-06] MEDS ORDERED: hydrALAZINE HCL IV 20 MG VIAL IV ONE (00:30)
[2018-02-06] MEDS ORDERED: hydrALAZINE HCL IV 20 MG VIAL ONE (00:39)
--- NOTE | 2018-02-06 01:06 | NUR ---
CALLED LAB FOR URINE SPECIMEN PICKUP
[2018-02-06 01:17] LABS: APPEARANCE,URINE CLEAR (CLEAR); BILIRUBIN,URINE NEGATIVE (NEGATIVE); BLOOD, URINE TRACE-INTA Ery/uL (NEGATIVE); COLOR,URINE YELLOW (YELLOW); KETONES,URINE NEGATIVE (NEGATIVE); LEUKOCYTE ESTERASE ,URINE NEGATIVE (NEGATIVE); NITRITE, URINE NEGATIVE (NEGATIVE); PH,URINE 7.5 (5.0-8.0); PROTEIN,URINE 3+ mg/dl (NEGATIVE); UGLUCOSE TRACE mg/dL (NEGATIVE); UROBILINOGEN,URINE 0.2 EU/dL (0.2)
[2018-02-06 01:23] LABS: BACTERIA,URINE Few /HPF (None Seen); SQUAMOUS EPITHELIAL CELL,UR Moderate /HPF (None Seen); URINE AMORPHOUS PHOSPHATES Few /HPF (None Seen); WBC,URINE 0-2 /HPF (0-3)
--- NOTE | 2018-02-06 01:55 | NUR ---
CALLED FOR /S GALLBLADDER
--- NOTE | 2018-02-06 03:00 | NUR ---
MAGNOLIA AT BEDSIDE
--- NOTE | 2018-02-06 04:10 | NUR ---
RPatient is resting comfortably in bed with eyes closed. Easily aroused. VSS. AT BEDSIDE
[2018-02-06 04:43] VITALS: BP 142/59
--- NOTE | 2018-02-06 04:44 | NUR ---
Patient discharged to home in stable condition. Written and verbal after care instructions given. Patient verbalizes understanding of instruction. IV removed. Catheter intact and site benign. Pressure and 4x4 applied to site. No bleeding noted. Pt ambulatory with a steady gait. VSS, NAD noted on DC. Denies complaint on DC.
== END 2018-02-06 04:44 | disposition home or self-care (01) ==
LOC: ER 22:58
DX: K80.20 Calculus of gallbladder without cholecystitis without obstruction (principal); I12.0 Hypertensive chronic kidney disease with stage 5 chronic kidney disease or end stage renal disease; N18.6 End stage renal disease; E87.1 Hypo-osmolality and hyponatremia; D64.9 Anemia, unspecified; E11.22 Type 2 diabetes mellitus with diabetic chronic kidney disease; J90 Pleural effusion, not elsewhere classified; Z45.2 Encounter for adjustment and management of vascular access device; Z79.82 Long term (current) use of aspirin; Z99.2 Dependence on renal dialysis
CPT/HCPCS: 36415; 71045-TC; 76705-TC; 80048-TC; 80076-TC; 81000-TC; 83690-TC; 84484-TC; 85025-TC; 85730-TC; A4606; J0360; J2270; J2405; J7040; Z7610

== ENCOUNTER 2021-09-08 18:00 | Inpatient (IN) | payer OTHER ==
[~2021-09-08] VITALS: Ht 149.9 cm; Wt 53.8 kg
[~2021-09-08 18:00] MED LIST changes: -LOSA50TA21 PO; +LOSA50TA39 PO; -PENT400T12 PO; +PENT400T17 PO
--- NOTE | 2021-09-08 18:19 | NUR ---
PEY[facility] 839 PT CALLED RA FROM HER HOME WITH C/O OF V/D X2 DAYS. PT IS RECIEVING DIALYSIS TREATMENTS, HER LAST TREATMENT WAS FRIDAY. PATIENT WAS TAKEN TO ER ROOM 8.
[2021-09-08] MEDS ORDERED: ONDANSETRON HCL/PF 4 MG/2 ML VIAL IVP ONE (18:30)
--- NOTE | 2021-09-08 18:39 | NUR ---
BLOOD SPECIMEN COLLECTED AND SENT TO THE LAB
[2021-09-08] MEDS ORDERED: ONDANSETRON HCL/PF 4 MG/2 ML VIAL ONE (18:40)
--- NOTE | 2021-09-08 18:45 | NUR ---
COVID SWAB DONE AND SENT TO THE LAB
--- NOTE | 2021-09-08 19:12 | NUR ---
CALLED TYLER FOR READ.
[2021-09-08 19:27] LABS: ALANINE AMINOTRANSFERASE 16 U/L (12-78); ALBUMIN 3.1 g/dL (3.4-5.0); ALKALINE PHOSPHATASE 157 U/L (46-116); ASPARTATE AMINOTRANSFERASE 20 U/L (15-37); BILIRUBIN,DIRECT 0.3 mg/dL (0.0-0.2); BILIRUBIN,TOTAL 1.1 mg/dL (0.2-1.0); CALCIUM, SERUM 7.8 mg/dL (8.5-10.1); CARBON DIOXIDE 30 mmol/L (21-32); CHLORIDE 93 mmol/L (98-107); CREATININE 6.4 mg/dL (0.6-1.3); GLUCOSE 110 mg/dL (74-106); LIPASE 29 U/L (73-393); POTASSIUM 3.6 mmol/L (3.5-5.1); SODIUM SERUM 132 mmol/L (136-145); TOTAL PROTEIN, SERUM 6.9 g/dL (6.4-8.2); UREA NITROGEN, BLOOD 31 mg/dL (7-18)
[2021-09-08 19:47] LABS: BASOPHILS % (AUTO) 0.9 % (0.0-2.0); EOSINOPHILS % (AUTO) 3.1 % (0.0-6.0); HEMATOCRIT 41 % (33-45); HEMOGLOBIN 13.2 g/dL (11.5-14.8); LYMPHOCYTES # (AUTO) 0.8 K/uL (0.8-4.8); LYMPHOCYTES % (AUTO) 18.1 % (20.0-44.0); MEAN CORPUSCULAR HGB CONC 33 g/dl (31.0-36.0); MEAN CORPUSCULAR VOLUME 93 fL (82-100); MONOCYTES # (AUTO) 0.3 K/uL (0.1-1.30); NEUTROPHILS # (AUTO) 3.1 K/uL (1.8-8.9); NEUTROPHILS % (AUTO) 70.9 % (43.0-81.0); PLATELET COUNT (AUTO) 95 K/uL (150-450); RED BLOOD CELL COUNT(AUTO) 4.39 MIL/uL (4.0-5.2); WHITE BLOOD COUNT (AUTO) 4.4 K/uL (4.3-11.0)
[2021-09-08 20:07] LABS: EOSINOPHILS % (MANUAL) 2 % (0-4); LYMPHOCYTES % (MANUAL) 17 % (16-48); MONOCYTES % (MANUAL) 10 % (0-11.0); NEUTROPHILS % (MANUAL) 71 (42-76)
--- NOTE | 2021-09-08 23:34 | NUR ---
TELE 324-2
--- NOTE | 2021-09-08 23:46 | NUR ---
REPORT GIVEN NA LOREDO
[2021-09-09] VITALS (7 sets, daily range): BP systolic 166–191; BP diastolic 53–76
[2021-09-09] MEDS: ENOXAPARIN SODIUM 30 MG/0.3 ML DISP.SYRIN SQ SCH ×2 (00:30→22:16)
[2021-09-09] MEDS ORDERED: Z GUARD REMEDY 2 OZ OINT TP PRN (00:30)
--- NOTE | 2021-09-09 01:05 | NUR ---
PATIENT TRANSFERRED UNDER ACLS
[2021-09-09 06:26] LABS: BASOPHILS % (AUTO) 1.2 % (0.0-2.0); EOSINOPHILS % (AUTO) 4.4 % (0.0-6.0); HEMATOCRIT 39 % (33-45); HEMOGLOBIN 12.8 g/dL (11.5-14.8); LYMPHOCYTES # (AUTO) 0.7 K/uL (0.8-4.8); LYMPHOCYTES % (AUTO) 18.3 % (20.0-44.0); MEAN CORPUSCULAR HGB CONC 33 g/dl (31.0-36.0); MEAN CORPUSCULAR VOLUME 94 fL (82-100); MONOCYTES # (AUTO) 0.3 K/uL (0.1-1.30); MONOCYTES % (AUTO) 7.3 % (2.0-12.0); NEUTROPHILS # (AUTO) 2.7 K/uL (1.8-8.9); NEUTROPHILS % (AUTO) 68.8 % (43.0-81.0); PLATELET COUNT (AUTO) 71 K/uL (150-450); WHITE BLOOD COUNT (AUTO) 3.9 K/uL (4.3-11.0)
[2021-09-09 07:17] LABS: CALCIUM, SERUM 7.8 mg/dL (8.5-10.1); CARBON DIOXIDE 25 mmol/L (21-32); CHLORIDE 95 mmol/L (98-107); CREATININE 6.6 mg/dL (0.6-1.3); GLUCOSE 81 mg/dL (74-106); MAGNESIUM 2.6 mg/dL (1.8-2.4); PHOSPHORUS 4.3 mg/dL (2.5-4.9); POTASSIUM 3.3 mmol/L (3.5-5.1); SODIUM SERUM 131 mmol/L (136-145); UREA NITROGEN, BLOOD 31 mg/dL (7-18)
[2021-09-09 07:21] LABS: CHOLESTEROL 95 mg/dL (<200); HDL CHOLESTEROL 41 mg/dL (40-60); TRIGLYCERIDES 71 mg/dL (30-150)
--- NOTE | 2021-09-09 07:28 | NUR ---
RN NOTE- PT IN BED ASLEEP, EASILY AWAKENED, ALERT ORIENTED, MIKI AV SHUNT, RT HAND 20G HEPLOCK. REPOSITIONED FOR COMFORT, BED LOCKED, SIDE RAILS UP, CALL LIGHT IN REACH . MONITOR ASSIST
[2021-09-09 07:39] LABS: LDL 45 mg/dL (0-99)
[2021-09-09] MEDS: LEVOTHYROXINE SODIUM 25 MCG TABLET PO SCH (08:23)
[2021-09-09] MEDS: PENTOXIFYLLINE 400 MG TABLET.SA PO SCH ×3 (08:24→16:31)
[2021-09-09] MEDS: ASPIRIN 81 MG TAB.CHEW PO SCH (08:24)
[2021-09-09] MEDS: FUROSEMIDE 20 MG TABLET PO SCH (08:24)
[2021-09-09] MEDS ORDERED: LOSARTAN POTASSIUM 50 MG TABLET PO SCH (09:00)
[2021-09-09] MEDS ORDERED: CARVEDILOL 3.125 MG TABLET PO SCH (09:00)
[2021-09-09] MEDS ORDERED: VALSARTAN 80 MG TABLET PO SCH (09:00)
[2021-09-09] MEDS ORDERED: PANT40TA49 PO (10:01)
[2021-09-09] MEDS ORDERED: CARV25TA2 PO (10:01)
[2021-09-09] MEDS ORDERED: ASPI-1169 PO (10:01)
[2021-09-09] MEDS ORDERED: TRAZ-252 PO (10:01)
[2021-09-09] MEDS ORDERED: ATOR40TA PO (10:01)
[2021-09-09] MEDS: ONDANSETRON HCL/PF 4 MG/2 ML VIAL IVP PRN (16:31)
[2021-09-09] MEDS: ATORVASTATIN 40 MG TABLET PO SCH (18:00)
--- NOTE | 2021-09-09 18:54 | NUR ---
RN CLOSING NOTE- PT IN BED, AWAITING HD, ALERT ORIENTED, MIKI AV SHUNT, RT HAND 20G HEPLOCK. REPOSITIONED FOR COMFORT, BED LOCKED, SIDE RAILS UP, CALL LIGHT IN REACH . MONITOR ASSIST
--- NOTE | 2021-09-09 19:43 | NUR ---
DISASTER RECOVERY ANALYST OPENING NOTES: RECEIVED PATIENT AWAKE IN BED, A/O X1, CROATIAN SPEAKING, AMBULATORY WITH SUPERVISION, ,BED IN LOW POSITION CALL LIGHTS WITHIN REACH, NO COMPLAIN OF PAIN AND DISCOMFORT AT THIS TIME, PATIENT ON RA NO SOB OR ANY RESP DISTRESS OBSERVED, ON TELE MONITORING SB-56, WITH IV LINE AT LAC#18 SL, PATIENT KEPT CLEAN AND DRY, ALL NEEDS MET, WILL CONTINUE TO MONITOR.
[2021-09-09] MEDS: CARVEDILOL 12.5 MG TABLET PO SCH (21:00)
[2021-09-10] VITALS: BP 191/66
--- NOTE | 2021-09-10 00:16 | NUR ---
GERTRUDE NOTES: CARVEDILOL 25 MG, 2099 ROUTINE MEDICATION GIVEN DURING DIALYSIS PATIENT BLOOD PRESSURE INCREASE FROM BP-172/71 P56 TO 191/66 P54 Addendum: 09/10/21 at 0037 by EMMY FLYNN RN BLOOD PRESSURE MEDICATION ON HOLD AT 2099 GIVEN NOW DUE TO INCREASE BLOOD PRESSURE AT191/ P-54
[2021-09-10] MEDS: CARVEDILOL 12.5 MG TABLET PO SCH ×3 (00:36→22:00)
--- NOTE | 2021-09-10 00:49 | NUR ---
RN NOTES: STARTED DIALYSIS AT 5 AND FINISHED AT 1235 WITH 3LITERS OUTPUT PATIENT REMAINS STABLE.
[2021-09-10] MEDS: ACETAMINOPHEN 325 MG TABLET PO PRN (01:29)
--- NOTE | 2021-09-10 01:29 | NUR ---
RN NOTES: PATIENT WAS COMPLAINING OF MILD SHOULDER PAIN PRN TYLENOL 650MG GIVEN FOR PS-4
[2021-09-10 04:00] VITALS: BP 175/86
[2021-09-10] MEDS ORDERED: VALSARTAN 80 MG TABLET PO ONE (04:30)
--- NOTE | 2021-09-10 04:41 | NUR ---
RN NOTES: PATIENT BLOOD PRESSURE AT 0400 WAS 175/86, P-54,RR-18, TEMP-97.3, O2-[address] EDGAR FOR INCREASE BLOOD PRESSURE AND ORDERED, TO GIVE DIOVAN 80MG DAILY, INITIAL DOSE GIVEN AT 0430 THEN RESUME THE DAILY DOSE AT 09/11/21 AT 0900 DAILY DOSE. NOTED AND CARRY OUT.
--- NOTE | 2021-09-10 06:52 | NUR ---
ROOF TILE LAYER CLOSING NOTES: RECEIVED PATIENT SLEEP IN BED COMFORTABLY, BED IN LOW POSITION, CALL LIGHTS WITHIN REACH NO COMPLAIN OF PAIN AND DISCOMFORT AT THIS TIME, PATIENT IS A/OX4 LAO SPEAKING, AMBULATORY USING BEDSIDE COMMODE WITH ASSISTANCE,ON TELE MONITORING SB-53, WITH IV LINE AT RT HAND #20 SL AND MIKI AV SHUNT DIALYSIS DONE AT 1235 WITH 3LTR OUTPUT, ON O2 AT 3LPM NO SOB WAS OBSERVED, PATIENT KEPT CLEAN AND DRY, ALL NEEDS MET, ENDORSE TO INCOMING SHIFT.
--- NOTE | 2021-09-10 07:30 | NUR ---
PT RECEIVED RESTING COMFORTABLY IN BED. NO S/S OR C/O PAIN OR DISTRESS NOTED. SIDE RAILS UP X2, CALL LIGHT LEFT WITHIN REACH. WILL CONTINUE PLAN OF CARE.
[2021-09-10] MEDS: LEVOTHYROXINE SODIUM 25 MCG TABLET PO SCH (08:40)
[2021-09-10] MEDS: PENTOXIFYLLINE 400 MG TABLET.SA PO SCH ×3 (08:43→17:46)
[2021-09-10] MEDS: ASPIRIN 81 MG TAB.CHEW PO SCH (08:43)
[2021-09-10] MEDS: FUROSEMIDE 20 MG TABLET PO SCH (08:43)
[2021-09-10 09:11] VITALS: BP 141/49
[2021-09-10 16:00] VITALS: BP 133/62
[2021-09-10] MEDS: hydrALAZINE HCL IV 20 MG VIAL IV PRN (16:17)
[2021-09-10] MEDS: ATORVASTATIN 40 MG TABLET PO SCH (17:46)
[2021-09-10 17:49] VITALS: BP 133/62
--- NOTE | 2021-09-10 18:00 | NUR ---
CHANGE OF CONDITION PATIENT CALLED ON THE CALL LIGHT COMPLAINING OF LEFT FACE PAIN. SWOLLEN LEFT FACE NOTED. STROKE ASSESSMENT PERFORMED WITH NO WEAKNESS OR ARM DRIFT NOTED. VITALS SIGNS NORMAL. PLATE MOUNTER KELLIE NOTIFIED. ORDERS RECEIVED. WILL CARRY OUT.
--- NOTE | 2021-09-10 18:35 | NUR ---
PT TO CT.
--- NOTE | 2021-09-10 19:15 | NUR ---
MS RN OPENING NOTES: RECEIVED PATIENT IN BED, AWAKE, A/O X4. WITH LEFT FACIAL SWELLING. NO S/S OF DISTRESS NOTED. NO COMPLAIN OF PAIN. CALL LIGHT WITHIN REACH. BED IN LOWEST AND LOCKED POSITION. BED ALARM ON. HOB ELEVATED. WITH O2 AT 3L MIN NASAL CANNULA.
[2021-09-10 19:50] VITALS: BP 124/60
[2021-09-10] MEDS: ENOXAPARIN SODIUM 30 MG/0.3 ML DISP.SYRIN SQ SCH (22:01)
--- NOTE | 2021-09-10 22:56 | NUR ---
PATIENT COMPLAINED OF CONSTIPATION, NO BM FOR 3 DAYS, INFORMED MD.
[2021-09-10] MEDS ORDERED: BISACODYL SUPP (10 MG) 10 MG/SUPP.RECT SUPP.RECT RC PRN (23:30)
[2021-09-10] MEDS: ONDANSETRON HCL/PF 4 MG/2 ML VIAL IVP PRN (23:32)
[2021-09-11 02:54] VITALS: BP 143/63
[2021-09-11] MEDS: MORPHINE SULFATE INJ 2 MG/ML DISP.SYRIN IV PRN ×3 (03:07→19:37)
[2021-09-11 06:37] LABS: BASOPHILS % (AUTO) 0.8 % (0.0-2.0); EOSINOPHILS % (AUTO) 3.4 % (0.0-6.0); HEMATOCRIT 39 % (33-45); HEMOGLOBIN 12.9 g/dL (11.5-14.8); LYMPHOCYTES # (AUTO) 0.7 K/uL (0.8-4.8); LYMPHOCYTES % (AUTO) 16.1 % (20.0-44.0); MEAN CORPUSCULAR HGB CONC 33 g/dl (31.0-36.0); MEAN CORPUSCULAR VOLUME 93 fL (82-100); MONOCYTES # (AUTO) 0.3 K/uL (0.1-1.30); MONOCYTES % (AUTO) 6.3 % (2.0-12.0); NEUTROPHILS % (AUTO) 73.4 % (43.0-81.0); PLATELET COUNT (AUTO) 125 K/uL (150-450); RED BLOOD CELL COUNT(AUTO) 4.18 MIL/uL (4.0-5.2); WHITE BLOOD COUNT (AUTO) 4.1 K/uL (4.3-11.0)
[2021-09-11 07:18] LABS: CALCIUM, SERUM 7.5 mg/dL (8.5-10.1); CARBON DIOXIDE 28 mmol/L (21-32); CHLORIDE 95 mmol/L (98-107); CREATININE 5.4 mg/dL (0.6-1.3); GLUCOSE 94 mg/dL (74-106); POTASSIUM 3.7 mmol/L (3.5-5.1); SODIUM SERUM 132 mmol/L (136-145); UREA NITROGEN, BLOOD 24 mg/dL (7-18)
[2021-09-11] MEDS: LEVOTHYROXINE SODIUM 25 MCG TABLET PO SCH (07:43)
--- NOTE | 2021-09-11 07:50 | NUR ---
MS RN OPENING NOTE RECEIVED PT AWAKE IN BED. A/O X4. PT IS IRANIAN-SPEAKING. PT IS ON 3LPM O2 VIA NC SATS 98%. NO SOB OR S/S OF RESPIRATORY DISTRESS NOTED. PT HAS NO C/O PAIN OR DISCOMFORT AT THIS TIME. IV ACCESS IN RIGHT HAND #20 SALINE-LOCKED, INTACT AND PATENT. PT NOTED WITH MIKI AV SHUNT INTACT. SAFETY PRECAUTIONS MAINTAINED. BED IN LOWEST LOCKED POSITION, HOB ELEVATED, SIDE RAILS UP X2. CALL LIGHT AND TABLE WITHIN REACH. WILL CONTINUE TO MONITOR.
[2021-09-11 08:00] VITALS: BP 148/79
[2021-09-11] MEDS: ASPIRIN 81 MG TAB.CHEW PO SCH (08:23)
[2021-09-11] MEDS: CARVEDILOL 12.5 MG TABLET PO SCH ×2 (08:24→21:00)
[2021-09-11] MEDS: FUROSEMIDE 20 MG TABLET PO SCH (08:25)
[2021-09-11] MEDS: VALSARTAN 80 MG TABLET PO SCH (08:25)
[2021-09-11] MEDS: PENTOXIFYLLINE 400 MG TABLET.SA PO SCH ×3 (08:25→17:10)
--- NOTE | 2021-09-11 11:40 | NUR ---
RN NOTE HD TX COMPLETED AT THIS TIME. 3L OUT. VSS. PT TOLERATED WELL WITH NO COMPLICATIONS NOTED. WILL CONTINUE TO MONITOR.
--- NOTE | 2021-09-11 13:00 | NUR ---
RN NOTE - PAIN PT C/O ACHING PAIN IN LEFT ARM, RATED 8/10 ON 0-10 PAIN SCALE. VSS. PER PT REQUEST, ADMINISTERED MORPHINE 2MG IV Q4H PRN FOR PAIN. WILL CONTINUE TO MONITOR.
[2021-09-11 16:06] VITALS: BP 114/55
[2021-09-11] MEDS: ATORVASTATIN 40 MG TABLET PO SCH (17:10)
--- NOTE | 2021-09-11 18:35 | NUR ---
MS RN CLOSING NOTE PT AWAKE IN BED. A/O X4. PT IS CHINESE-SPEAKING. PT IS ON 3LPM O2 VIA NC SATS 98%. NO SOB OR S/S OF RESPIRATORY DISTRESS NOTED. PT HAS NO C/O PAIN OR DISCOMFORT AT THIS TIME. IV ACCESS IN RIGHT HAND #20 SALINE-LOCKED, INTACT AND PATENT. PT NOTED WITH MIKI AV SHUNT INTACT. ALL NEEDS HAVE BEEN MET. SAFETY PRECAUTIONS MAINTAINED AT ALL TIMES. BED IN LOWEST LOCKED POSITION, HOB ELEVATED, SIDE RAILS UP X2. CALL LIGHT AND TABLE WITHIN REACH. WILL ENDORSE TO ONCOMING NURSE FOR JOSE.
--- NOTE | 2021-09-11 19:25 | NUR ---
RN NOTES PT AWAKE IN BED. A/O X4. PT IS AZERI-SPEAKING. PT IS ON 3LPM O2 VIA NC SATS 98%. NO SOB OR S/S OF RESPIRATORY DISTRESS NOTED. PT HAS NO C/O PAIN AT THIS TIME. PT DOES SAY SHE HAS NAUSEA WILL PROVIDE PRN ZOFRAN.IV ACCESS IN RIGHT HAND #20 SALINE-LOCKED, INTACT AND PATENT. PT NOTED WITH MIKI AV SHUNT INTACT. ALL NEEDS HAVE BEEN MET. SAFETY PRECAUTIONS MAINTAINED AT ALL TIMES. BED IN LOWEST LOCKED POSITION, HOB ELEVATED, SIDE RAILS UP X2. CALL LIGHT AND TABLE WITHIN REACH. WILL CONTINUE TO MONITOR. Addendum: 09/11/21 at 1940 by MELISSA AMRINO RN PT IS NOW REPORTING 8/10 PAIN ON A NUMERIC PAIN SCALE ON HER LEFT ARM PRN MORPHINE GIVEN TOLERATED WELL WILL CONTINUE TO MONITOR.
[2021-09-11] MEDS: ONDANSETRON HCL/PF 4 MG/2 ML VIAL IVP PRN (19:32)
[2021-09-11 20:00] VITALS: BP 156/57
[2021-09-11] MEDS: ENOXAPARIN SODIUM 30 MG/0.3 ML DISP.SYRIN SQ SCH (21:35)
[2021-09-12] MEDS: ONDANSETRON HCL/PF 4 MG/2 ML VIAL IVP PRN ×2 (01:36→18:49)
--- NOTE | 2021-09-12 01:41 | NUR ---
RN NOTES PT HAS A EPISODE OF EMESIS PRN ZOFRAN GIVEN AND TOLERATED WELL. WILL CONTINUE TO MONITOR.
--- NOTE | 2021-09-12 06:35 | NUR ---
RN NOTES PT ASLEEP IN BED BUT EASILY WOKEN UP. A/O X4. PT IS HUNGARIAN-SPEAKING. PT IS ON 3LPM O2 VIA NC SATS 98%. NO SOB OR S/S OF RESPIRATORY DISTRESS NOTED. PT HAS NO C/O PAIN AT THIS TIME. NO N/V AT THIS TIME.IV ACCESS IN RIGHT HAND #20 SALINE-LOCKED, INTACT AND PATENT. PT NOTED WITH MIKI AV SHUNT INTACT. ALL NEEDS HAVE BEEN MET. SAFETY PRECAUTIONS MAINTAINED AT ALL TIMES. BED IN LOWEST LOCKED POSITION, HOB ELEVATED, SIDE RAILS UP X2. CALL LIGHT AND TABLE WITHIN REACH. WILL ENDORSE CARE TO DAY SHIFT NURSE.
[2021-09-12] MEDS: LEVOTHYROXINE SODIUM 25 MCG TABLET PO SCH (07:27)
--- NOTE | 2021-09-12 07:30 | NUR ---
RN OPENING NOTES: RECEIVED PATIENT AWAKE IN BED. A/O X4. PATIENT IS [place] HEL[place]IAN-SPEAKING. PT IS ON 3LPM O2 VIA NASAL CANNULA O2 SAT 99%. NO SOB OR S/S OF RESPIRATORY DISTRESS NOTED. PT HAS NO C/O PAIN OR DISCOMFORT AT THIS TIME. IV ACCESS IN RIGHT HAND #20 SALINE-LOCKED, INTACT AND PATENT. PT NOTED WITH MIKI AV SHUNT INTACT. SAFETY PRECAUTIONS MAINTAINED. BED IN LOWEST LOCKED POSITION, HOB ELEVATED, SIDE RAILS UP X2. CALL LIGHT AND TABLE WITHIN REACH. WILL CONTINUE TO MONITOR.
[2021-09-12 08:00] VITALS: BP 166/64
[2021-09-12] MEDS: ASPIRIN 81 MG TAB.CHEW PO SCH (08:18)
[2021-09-12] MEDS: PENTOXIFYLLINE 400 MG TABLET.SA PO SCH ×3 (08:18→16:53)
[2021-09-12] MEDS: FUROSEMIDE 20 MG TABLET PO SCH (08:18)
[2021-09-12] MEDS: CARVEDILOL 12.5 MG TABLET PO SCH ×2 (08:20→21:00)
[2021-09-12] MEDS: VALSARTAN 80 MG TABLET PO SCH (08:20)
--- NOTE | 2021-09-12 09:30 | NUR ---
RN NOTES: PATIENT WAS SEEN AND EXAMINED BY DR REECE WITH ORDERS MADE AND CARRIED OUT.CONSENT FOR ULTRASOUND GUIDED THORACENTESIS RIGHT OBTAINED . PATIENT UNABLE TO SIGN CALLED LAUREN AT [phone] FOR CONSENT WITH 2 RN WITNESSES.
[2021-09-12 09:47] LABS: BASOPHILS % (AUTO) 0.8 % (0.0-2.0); EOSINOPHILS % (AUTO) 3.3 % (0.0-6.0); HEMATOCRIT 38 % (33-45); HEMOGLOBIN 12.2 g/dL (11.5-14.8); LYMPHOCYTES # (AUTO) 0.6 K/uL (0.8-4.8); LYMPHOCYTES % (AUTO) 16.2 % (20.0-44.0); MEAN CORPUSCULAR HGB CONC 32 g/dl (31.0-36.0); MEAN CORPUSCULAR VOLUME 94 fL (82-100); MONOCYTES # (AUTO) 0.3 K/uL (0.1-1.30); MONOCYTES % (AUTO) 6.9 % (2.0-12.0); NEUTROPHILS # (AUTO) 2.8 K/uL (1.8-8.9); NEUTROPHILS % (AUTO) 72.8 % (43.0-81.0); PLATELET COUNT (AUTO) 81 K/uL (150-450); RED BLOOD CELL COUNT(AUTO) 4.06 MIL/uL (4.0-5.2); WHITE BLOOD COUNT (AUTO) 3.8 K/uL (4.3-11.0)
[2021-09-12 09:54] LABS: CALCIUM, SERUM 7.5 mg/dL (8.5-10.1); CARBON DIOXIDE 29 mmol/L (21-32); CHLORIDE 97 mmol/L (98-107); CREATININE 4.5 mg/dL (0.6-1.3); GLUCOSE 113 mg/dL (74-106); POTASSIUM 3.5 mmol/L (3.5-5.1); SODIUM SERUM 134 mmol/L (136-145); UREA NITROGEN, BLOOD 15 mg/dL (7-18)
[2021-09-12] MEDS: MORPHINE SULFATE INJ 2 MG/ML DISP.SYRIN IV PRN (11:37)
--- NOTE | 2021-09-12 12:07 | NUR ---
RN NOTES S/P ULTRASOUND GUIDED THORACENTESIS RIGHT BY DR. HOLDEN. FLUID COLLECTED SENT TO LAB FOR ANALYSIS. PROPERLY LABELED. WILL CONTINUE TO MONITOR PATIENT ACCORDINGLY. CHEST X-RAY STAT ORDERED. Addendum: 09/12/21 at 1209 by ARAMIS TAFOYA RN TOTAL LUNG FLUID COLLECTED WAS 1560 CC.
--- NOTE | 2021-09-12 13:45 | NUR ---
RN NOTES RECEIVED A PHONE CALL FRO DR. REECE REGARDING PATIENT'S CHEST X RAY RESULT. ORDERED TO REPEAT CHEST X-RAY AT 1600 FOR COMPARISON. NOTED AND CARRIED OUT.
--- NOTE | 2021-09-12 14:00 | NUR ---
RN NOTES SKYE CLARK MADE AWARE OF PATIENT'S CURRENT STATUS.
[2021-09-12 16:00] VITALS: BP 146/76
[2021-09-12] MEDS: ATORVASTATIN 40 MG TABLET PO SCH (17:13)
--- NOTE | 2021-09-12 17:14 | NUR ---
RN NOTES CHEST X-RAY RESULT RELAYED TO DR. REECE. REPEAT CHEST X-RAY IN AM ORDERED.
--- NOTE | 2021-09-12 18:39 | NUR ---
RN CLOSING NOTES: PATIENT AWAKE IN BED RESTING AND WATCHING TV. A/O X4. PATIENT IS DIVEHI-SPEAKING. PT IS BREATHING IN ROOM AIR. NO SOB OR S/S OF RESPIRATORY DISTRESS NOTED. PT HAS NO C/O PAIN OR DISCOMFORT AT THIS TIME. IV ACCESS IN RIGHT HAND #20 SALINE-LOCKED, INTACT AND PATENT. PT NOTED WITH MIKI AV SHUNT INTACT WITH POSITIVE THRILL AND BRUIT. ALL MEDS GIVEN ORDERED.SAFETY PRECAUTIONS MAINTAINED. BED IN LOWEST LOCKED POSITION, HOB ELEVATED, SIDE RAILS UP X2. CALL LIGHT AND TABLE WITHIN REACH. WILL ENDORSE ONCOMING NURSE FOR CONTINUOUS OF CARE.
[2021-09-12 20:00] VITALS: BP 96/48
--- NOTE | 2021-09-12 20:23 | NUR ---
In bed alert and orientated X4 stated her nauses is better sp medicated with Zofran Lila speaking with some understanding of [place] minimal
[2021-09-12] MEDS ORDERED: MAG HYDROX/AL HYDROX/SIMETH 30 ML UDC PO PRN (21:00)
--- NOTE | 2021-09-12 21:00 | NUR ---
2100 Coreg not given d/t Blood pressure 96/48 HR 60 skin warm and dry alert and orientated
--- NOTE | 2021-09-13 05:22 | NUR ---
placed on 2 liters 02 sats 95 -97%\ desates when off 02 to 87% no SOB this 12 hours uses the BSC with minimal assist
[2021-09-13 07:26] LABS: CALCIUM, SERUM 7.4 mg/dL (8.5-10.1); CARBON DIOXIDE 28 mmol/L (21-32); CHLORIDE 98 mmol/L (98-107); CREATININE 5.7 mg/dL (0.6-1.3); GLUCOSE 86 mg/dL (74-106); MAGNESIUM 2.5 mg/dL (1.8-2.4); PHOSPHORUS 3.4 mg/dL (2.5-4.9); POTASSIUM 3.8 mmol/L (3.5-5.1); SODIUM SERUM 134 mmol/L (136-145); UREA NITROGEN, BLOOD 21 mg/dL (7-18)
[2021-09-13 07:32] LABS: BASOPHILS % (AUTO) 0.4 % (0.0-2.0); EOSINOPHILS % (AUTO) 3.7 % (0.0-6.0); HEMATOCRIT 38 % (33-45); HEMOGLOBIN 12.3 g/dL (11.5-14.8); LYMPHOCYTES # (AUTO) 0.8 K/uL (0.8-4.8); LYMPHOCYTES % (AUTO) 16.2 % (20.0-44.0); MEAN CORPUSCULAR HGB CONC 32 g/dl (31.0-36.0); MEAN CORPUSCULAR VOLUME 95 fL (82-100); MONOCYTES # (AUTO) 0.3 K/uL (0.1-1.30); MONOCYTES % (AUTO) 6.8 % (2.0-12.0); NEUTROPHILS # (AUTO) 3.6 K/uL (1.8-8.9); NEUTROPHILS % (AUTO) 72.9 % (43.0-81.0); PLATELET COUNT (AUTO) 79 K/uL (150-450); RED BLOOD CELL COUNT(AUTO) 4.06 MIL/uL (4.0-5.2); WHITE BLOOD COUNT (AUTO) 4.9 K/uL (4.3-11.0)
--- NOTE | 2021-09-13 07:45 | NUR ---
RN OPENING NOTES Patient seen comfortably lying in bed, no apparent distress noted, respirations even and unlabored, no SOB, denies any pain or discomfort at this time. Call light left within reach, safety precautions in place, brakes locked, side rails up X 2, will monitor closely for any changes.
[2021-09-13 08:00] VITALS: BP 143/58
[2021-09-13] MEDS: LEVOTHYROXINE SODIUM 25 MCG TABLET PO SCH (09:26)
[2021-09-13] MEDS: ASPIRIN 81 MG TAB.CHEW PO SCH (09:26)
[2021-09-13] MEDS: FUROSEMIDE 20 MG TABLET PO SCH (09:27)
[2021-09-13] MEDS: PENTOXIFYLLINE 400 MG TABLET.SA PO SCH ×3 (09:27→17:05)
[2021-09-13] MEDS: VALSARTAN 80 MG TABLET PO SCH (09:27)
[2021-09-13] MEDS: CARVEDILOL 12.5 MG TABLET PO SCH ×2 (09:29→21:00)
[2021-09-13 15:48] VITALS: BP 145/58
[2021-09-13] MEDS: ATORVASTATIN 40 MG TABLET PO SCH (17:05)
--- NOTE | 2021-09-13 18:26 | NUR ---
RN CLOSING NOTES Patient lying in bed, AO X 4, respirations even and unlabored, no SOB, remained afebrile, no apparent distress noted, denies any pain or discomfort. All medications given per MD order, tolerating well. No s/s of fluid overload, no shortness of breath no unusual or new swelling noted at this time. Patient has ongoing hemodialysis treatment, tolerating well, AV shunt on left upper arm noted with no redness, no s/s of infection, no bleeding, + for bruit and thrill. All needs attended, kept clean and dry, call light left within reach, safety precautions in place, brakes locked, side rails up X 2, will endorse to next shift for continuity of care.
--- NOTE | 2021-09-13 19:40 | NUR ---
MS RN OPENING NOTE PATIENT IN BED CURRENTLY ON HD, ALERT/ORIENTED X 4, PT IS ESTONIAN SPEAKING, ABLE TO MAKE NEEDS KNOWN. PATIENT DENIES PAIN OR DISCOMFORT AT THIS TIME. PT ON 2L OF OXYGEN VIA NC, NO S/S OF DISTRESS OR SOB NOTED, BREATHING EVEN AND UNLABORED. RIGHT HAND IV ACCESS INTACT AND SALINE LOCKED. MIKI AV SHUNT NOTED. SAFETY MEASURES IN PLACE: CALL LIGHT WITHIN REACH, BED LOCKED IN LOW POSITION, SIDE RAILS UP X 3, BED ALARM ON. WILL CONTINUE TO MONITOR PATIENT
--- NOTE | 2021-09-13 20:30 | NUR ---
MS RN NOTE HD FINISHED, 3 L OUT
[2021-09-13 20:35] VITALS: BP 125/58
--- NOTE | 2021-09-14 06:23 | NUR ---
MS RN CLOSING NOTES PATIENT SLEEPING IN BED, APPEARS COMFORTABLE AND NOT IN ANY DISTRESS. NO SIGNIFICANT CHANGES THROUGHOUT SHIFT. PT ON 2L OF OXYGEN VIA NC, NO S/S OF DISTRESS OR SOB NOTED, BREATHING EVEN AND UNLABORED. RIGHT HAND IV ACCESS INTACT AND SALINE LOCKED. PT NOTED WITH MIKI AV SHUNT, INTACT WITH POSITIVE THRILL AND BRUIT. ALL MEDS GIVEN ORDERED, PATIENT NEEDS MET. SAFETY MEASURES IN PLACE: CALL LIGHT WITHIN REACH, BED LOCKED IN LOW POSITION, SIDE RAILS UP X 3, BED ALARM ON, HOB ELEVATED. SAFETY PRECAUTIONS MAINTAINED. BED IN LOWEST LOCKED POSITION, HOB ELEVATED. WILL ENDORSE ONCOMING NURSE FOR CONTINUITY OF CARE.
[2021-09-14 07:34] LABS: BASOPHILS % (AUTO) 0.4 % (0.0-2.0); HEMATOCRIT 37 % (33-45); HEMOGLOBIN 12.1 g/dL (11.5-14.8); LYMPHOCYTES # (AUTO) 0.6 K/uL (0.8-4.8); MEAN CORPUSCULAR HGB CONC 32 g/dl (31.0-36.0); MEAN CORPUSCULAR VOLUME 93 fL (82-100); MONOCYTES # (AUTO) 0.3 K/uL (0.1-1.30); MONOCYTES % (AUTO) 7.4 % (2.0-12.0); NEUTROPHILS # (AUTO) 3.4 K/uL (1.8-8.9); NEUTROPHILS % (AUTO) 74.2 % (43.0-81.0); PLATELET COUNT (AUTO) 76 K/uL (150-450); RED BLOOD CELL COUNT(AUTO) 3.99 MIL/uL (4.0-5.2); WHITE BLOOD COUNT (AUTO) 4.6 K/uL (4.3-11.0)
[2021-09-14 08:00] VITALS: BP 148/68
[2021-09-14 08:12] LABS: CALCIUM, SERUM 7.6 mg/dL (8.5-10.1); CARBON DIOXIDE 29 mmol/L (21-32); CHLORIDE 99 mmol/L (98-107); CREATININE 4.5 mg/dL (0.6-1.3); GLUCOSE 79 mg/dL (74-106); MAGNESIUM 2.4 mg/dL (1.8-2.4); PHOSPHORUS 2.6 mg/dL (2.5-4.9); POTASSIUM 3.8 mmol/L (3.5-5.1); SODIUM SERUM 135 mmol/L (136-145); UREA NITROGEN, BLOOD 14 mg/dL (7-18)
[2021-09-14] MEDS: LEVOTHYROXINE SODIUM 25 MCG TABLET PO SCH (08:38)
[2021-09-14] MEDS: FUROSEMIDE 20 MG TABLET PO SCH (08:38)
[2021-09-14] MEDS: PENTOXIFYLLINE 400 MG TABLET.SA PO SCH ×3 (08:38→17:09)
[2021-09-14] MEDS: ASPIRIN 81 MG TAB.CHEW PO SCH (08:38)
[2021-09-14] MEDS: VALSARTAN 80 MG TABLET PO SCH (08:39)
[2021-09-14] MEDS: CARVEDILOL 12.5 MG TABLET PO SCH ×2 (08:39→20:31)
--- NOTE | 2021-09-14 13:55 | NUR ---
Patient's chest xray results relayed to hospitalist in charge today and to underwear hemmer with new orders, patient seen comfortably sleeping in bed, no respiratory distress noted, no shortness of breath, no apparent distress noted, will monitor closely for any changes.
[2021-09-14 16:00] VITALS: BP 148/70
[2021-09-14] MEDS: ATORVASTATIN 40 MG TABLET PO SCH (17:09)
[2021-09-14] MEDS: ONDANSETRON HCL/PF 4 MG/2 ML VIAL IVP PRN (17:09)
--- NOTE | 2021-09-14 18:42 | NUR ---
RN CLOSING NOTES Patient lying in bed, AO X 4, respirations even and unlabored, no SOB, remained afebrile, no apparent distress noted, denies any pain or discomfort. All medications given per MD order, tolerating well. Anti-nausea medicine given as needed per MD order, noted with help, no vomiting noted. No s/s of fluid overload, no shortness of breath no unusual or new swelling noted at this time. AV shunt on left upper arm covered with dry dressings, noted with no redness, no s/s of infection, no bleeding, + for bruit and thrill. All needs attended, kept clean and dry, call light left within reach, safety precautions in place, brakes locked, side rails up X 2, will endorse to next shift for continuity of care.
--- NOTE | 2021-09-14 19:30 | NUR ---
RN ms opening notes Received Pt from morning nurse. Pt is laying in bed comfortable, awake and watching TV. Pt is alert and orientedX4. Pt speaks Hungarian and able to make needs known. Respiration normal in 5 L NC. No SOB. No S/S of distress noted. IV site at R hand #20 is clean, intact and SL. MIKI AV shunt is clean, intact , thrill and bruit. Safety precautions is maintained. Bed at low position, brakes locked, side rails upX2, hob elevated and call light is within reach. Will continue to monitor.
[2021-09-14 20:00] VITALS: BP 157/60
[2021-09-14] MEDS: ACETAMINOPHEN 325 MG TABLET PO PRN (20:36)
--- NOTE | 2021-09-14 20:37 | NUR ---
RN notes Pt is complaining of R arm pain and requesting tylenol. Pt stated " No morphine, tylenol okay!". Administered tylenol as ordered per Pt' request. safety precautions is maintained. Will continue to monitor.
[2021-09-14 23:00] VITALS: BP 139/54
--- NOTE | 2021-09-15 07:00 | NUR ---
RN ms closing notes Pt is resting in bed comfortably. Pt is alert and orientedX4. Pt speaks Norwegian and able to make needs known. Respiration normal in 6 L NC. No SOB. No S/S of distress noted. VS is stable. IV site at R hand #20 is clean, intact and SL. MIKI AV shunt is clean, intact , thrill and bruit. Routine meds were given as ordered. All needs met and attended. Safety precautions is maintained. Bed at low position, brakes locked, side rails upX2, hob elevated and call light is within reach. Will endorse to am nurse for JOSE.
--- NOTE | 2021-09-15 07:40 | NUR ---
MS RN OPENING NOTE RECEIVED PT AWAKE IN BED. A/O X4. PT IS INDIAN-SPEAKING. PT IS ON 6LPM O2 VIA NC TOLERATING WELL. NO SOB OR S/S OF RESPIRATORY DISTRESS NOTED. PT HAS NO C/O PAIN OR DISCOMFORT AT THIS TIME. IV ACCESS IN RIGHT HAND #20 SALINE-LOCKED, INTACT AND PATENT. PT NOTED WITH MIKI AV SHUNT INTACT. SAFETY PRECAUTIONS MAINTAINED. BED IN LOWEST LOCKED POSITION, HOB ELEVATED, SIDE RAILS UP X2. CALL LIGHT AND TABLE WITHIN REACH. WILL CONTINUE TO MONITOR.
[2021-09-15 07:43] LABS: BASOPHILS % (AUTO) 0.6 % (0.0-2.0); EOSINOPHILS % (AUTO) 7.3 % (0.0-6.0); HEMATOCRIT 37 % (33-45); HEMOGLOBIN 11.9 g/dL (11.5-14.8); LYMPHOCYTES # (AUTO) 0.7 K/uL (0.8-4.8); LYMPHOCYTES % (AUTO) 17.6 % (20.0-44.0); MEAN CORPUSCULAR HGB CONC 32 g/dl (31.0-36.0); MEAN CORPUSCULAR VOLUME 93 fL (82-100); MONOCYTES # (AUTO) 0.3 K/uL (0.1-1.30); MONOCYTES % (AUTO) 7.6 % (2.0-12.0); NEUTROPHILS # (AUTO) 2.7 K/uL (1.8-8.9); NEUTROPHILS % (AUTO) 66.9 % (43.0-81.0); PLATELET COUNT (AUTO) 83 K/uL (150-450); RED BLOOD CELL COUNT(AUTO) 3.97 MIL/uL (4.0-5.2); WHITE BLOOD COUNT (AUTO) 4.1 K/uL (4.3-11.0)
[2021-09-15] MEDS: LEVOTHYROXINE SODIUM 25 MCG TABLET PO SCH (07:54)
[2021-09-15 08:29] LABS: CALCIUM, SERUM 7.4 mg/dL (8.5-10.1); CARBON DIOXIDE 27 mmol/L (21-32); CHLORIDE 98 mmol/L (98-107); CREATININE 5.8 mg/dL (0.6-1.3); GLUCOSE 75 mg/dL (74-106); MAGNESIUM 2.5 mg/dL (1.8-2.4); SODIUM SERUM 133 mmol/L (136-145); UREA NITROGEN, BLOOD 21 mg/dL (7-18)
[2021-09-15] MEDS: PENTOXIFYLLINE 400 MG TABLET.SA PO SCH ×3 (08:41→17:19)
[2021-09-15] MEDS: FUROSEMIDE 20 MG TABLET PO SCH (08:41)
[2021-09-15] MEDS: ASPIRIN 81 MG TAB.CHEW PO SCH (08:41)
[2021-09-15] MEDS: CARVEDILOL 12.5 MG TABLET PO SCH ×2 (08:47→21:05)
[2021-09-15] MEDS: VALSARTAN 80 MG TABLET PO SCH (08:47)
--- NOTE | 2021-09-15 08:48 | NUR ---
RN NOTE WITHHELD VALSARTAN PO AND CARVEDILOL PO AT THIS TIME DUE TO HD TX.
--- NOTE | 2021-09-15 12:50 | NUR ---
HD TX COMPLETED AT THIS TIME. 3L OUT. VSS. PT IS IN STABLE CONDITION WITH NO COMPLICATIONS NOTED. WILL CONTINUE TO MONITOR PT.
[2021-09-15 14:00] VITALS: BP 132/76
--- NOTE | 2021-09-15 14:53 | NUR ---
RECEIVED ORDERS FROM KAUSHIK SALAZAR TO PLACE PT ON HUMIDIFIED O2 6LPM VIA NC. ORDERS READ BACK, ENTERED, AND CARRIED OUT. WILL CONTINUE TO MONITOR.
[2021-09-15 16:00] VITALS: BP 152/59
[2021-09-15] MEDS: ATORVASTATIN 40 MG TABLET PO SCH (17:19)
--- NOTE | 2021-09-15 18:34 | NUR ---
MS RN CLOSING NOTE PT IS AWAKE IN BED. A/O X4. PT IS KISWAHILI-SPEAKING. PT IS ON 6LPM HUMIDIFIED O2 VIA NC TOLERATING WELL. NO SOB OR S/S OF RESPIRATORY DISTRESS NOTED. PT HAS NO C/O PAIN OR DISCOMFORT AT THIS TIME. IV ACCESS IN RIGHT HAND #20 SALINE-LOCKED, INTACT AND PATENT. PT NOTED WITH MIKI AV SHUNT INTACT. ALL NEEDS HAVE BEEN MET. SAFETY PRECAUTIONS MAINTAINED AT ALL TIMES. BED IN LOWEST LOCKED POSITION, HOB ELEVATED, SIDE RAILS UP X2. CALL LIGHT AND TABLE WITHIN REACH. WILL ENDORSE TO ONCOMING NURSE FOR JOSE.
--- NOTE | 2021-09-15 19:38 | NUR ---
MS RN NOTE PATIENT IN BED. A/OX4. CENTRAL AFRICAN SPEAKING, ABLE TO MAKE NEEDS KNOWN. NO S/S OF APPARENT DISTRESS TOLERATING 6LPM OF O2 VIA NC. NO C/O PAIN. NO IV FLUIDS RUNNING AT THIS TIME. MIKI AV SHUNT NOTED -- WITH BRUIT AND THRILL. SAFETY IN PLACE. NO NEEDS AT THIS TIME. WILL FOLLOW THROUGH CARE PLAN.
[2021-09-15 20:00] VITALS: BP 183/66
[2021-09-15] MEDS: hydrALAZINE HCL IV 20 MG VIAL IV PRN (20:36)
--- NOTE | 2021-09-15 20:46 | NUR ---
MS RN NOTE PATIENT BLOOD PRESSURE WAS 183/66 UPON RECHECK. GIVEN HYDRALAZINE 10MG PRN. WILL CONT. TO MONITOR.
[2021-09-15] MEDS: ACETAMINOPHEN 325 MG TABLET PO PRN (22:42)
--- NOTE | 2021-09-15 23:01 | NUR ---
MS RN NOTE PATIENT REQUESTED TYLENOL AT THIS TIME. C/O R. FOREARM PAIN. GIVEN TYLEN. WILL CONT. TO MONITOR.
[2021-09-16 06:37] LABS: CALCIUM, SERUM 7.4 mg/dL (8.5-10.1); CARBON DIOXIDE 28 mmol/L (21-32); CHLORIDE 100 mmol/L (98-107); CREATININE 4.3 mg/dL (0.6-1.3); GLUCOSE 83 mg/dL (74-106); MAGNESIUM 2.2 mg/dL (1.8-2.4); PHOSPHORUS 2.4 mg/dL (2.5-4.9); POTASSIUM 3.6 mmol/L (3.5-5.1); SODIUM SERUM 135 mmol/L (136-145); UREA NITROGEN, BLOOD 13 mg/dL (7-18)
[2021-09-16 06:47] LABS: BASOPHILS % (AUTO) 0.6 % (0.0-2.0); EOSINOPHILS % (AUTO) 7.4 % (0.0-6.0); HEMATOCRIT 38 % (33-45); HEMOGLOBIN 12.1 g/dL (11.5-14.8); LYMPHOCYTES # (AUTO) 0.6 K/uL (0.8-4.8); LYMPHOCYTES % (AUTO) 14.2 % (20.0-44.0); MEAN CORPUSCULAR HGB CONC 32 g/dl (31.0-36.0); MEAN CORPUSCULAR VOLUME 93 fL (82-100); MONOCYTES # (AUTO) 0.3 K/uL (0.1-1.30); MONOCYTES % (AUTO) 7.9 % (2.0-12.0); NEUTROPHILS # (AUTO) 3.1 K/uL (1.8-8.9); NEUTROPHILS % (AUTO) 69.9 % (43.0-81.0); PLATELET COUNT (AUTO) 85 K/uL (150-450); RED BLOOD CELL COUNT(AUTO) 4.04 MIL/uL (4.0-5.2); WHITE BLOOD COUNT (AUTO) 4.4 K/uL (4.3-11.0)
--- NOTE | 2021-09-16 06:59 | NUR ---
MS RN CLOSING PATIENT IN BED WITH EYES CLOSED, EASY TO AROUSE. NO S/S OF APPARENT DISTRESS ON 6LPM O2 VIA NC. DENIES PAIN AT THIS TIME. NO IV FLUIDS RUNNING. ALL SCHED MEDS ADMINISTERED. ALL NEEDS ATTENDED. SAFETY KEPT IN PLACE THE WHOLE SHIFT. WILL ENDORSE CARE TO MORNING SHIFT RN.
--- NOTE | 2021-09-16 07:47 | NUR ---
MS RN OPENING NOTE RECEIVED PT IN BED, EYES CLOSED, EASILY AROUSED. A/O X4. PT IS TELUGU-SPEAKING. PT IS ON 6LPM O2 VIA NC TOLERATING WELL. NO SOB OR S/S OF RESPIRATORY DISTRESS NOTED. PT HAS NO C/O PAIN OR DISCOMFORT AT THIS TIME. IV ACCESS IN RIGHT HAND #20 SALINE-LOCKED, INTACT AND PATENT. PT NOTED WITH MIKI AV SHUNT INTACT. SAFETY PRECAUTIONS MAINTAINED. BED IN LOWEST LOCKED POSITION, HOB ELEVATED, SIDE RAILS UP X2. CALL LIGHT AND TABLE WITHIN REACH. WILL CONTINUE TO MONITOR.
[2021-09-16] MEDS: LEVOTHYROXINE SODIUM 25 MCG TABLET PO SCH (08:03)
[2021-09-16] MEDS: ASPIRIN 81 MG TAB.CHEW PO SCH (08:20)
[2021-09-16] MEDS: PENTOXIFYLLINE 400 MG TABLET.SA PO SCH ×3 (08:20→17:01)
[2021-09-16] MEDS: VALSARTAN 80 MG TABLET PO SCH (08:21)
[2021-09-16] MEDS: FUROSEMIDE 20 MG TABLET PO SCH (08:21)
[2021-09-16] MEDS: CARVEDILOL 12.5 MG TABLET PO SCH ×2 (08:21→20:11)
[2021-09-16 09:16] VITALS: BP 159/60
[2021-09-16] MEDS ORDERED: K PHOS NEUTRAL 250 MG TABLET PO ONE (10:30)
--- NOTE | 2021-09-16 11:05 | NUR ---
RN NOTE PER CLERICAL OFFICE SALAZAR, CHECKED PT'S SPO2. NOTED AT 94% ROOM AIR, TOLERATING WELL. DRY COUGH NOTED. NO SOB OR S/S OF RESPIRATORY DISTRESS. CLERICAL OFFICE SALAZAR AWARE.
--- NOTE | 2021-09-16 13:05 | NUR ---
RN NOTE RN NOTE PER INTERIOR MECHANIC SALAZAR, MONITOR PT'S SPO2. NOTED AT 95% ROOM AIR, TOLERATING WELL. DRY COUGH NOTED. NO SOB OR S/S OF RESPIRATORY DISTRESS. INTERIOR MECHANIC SALAZAR AWARE.
[2021-09-16 16:29] VITALS: BP 147/62
[2021-09-16] MEDS: ATORVASTATIN 40 MG TABLET PO SCH (17:05)
--- NOTE | 2021-09-16 18:35 | NUR ---
MS RN CLOSING NOTE PT IS AWAKE IN BED. A/O X4. PT IS CROATIAN-SPEAKING. PT IS STABLE ON RA, NO SOB OR S/S OF RESPIRATORY DISTRESS NOTED. PT HAS NO C/O PAIN OR DISCOMFORT AT THIS TIME. IV ACCESS IN RIGHT HAND #20 SALINE-LOCKED, INTACT AND PATENT. PT NOTED WITH MIKI AV SHUNT INTACT. ALL NEEDS HAVE BEEN MET. SAFETY PRECAUTIONS MAINTAINED AT ALL TIMES. BED IN LOWEST LOCKED POSITION, HOB ELEVATED, SIDE RAILS UP X2. CALL LIGHT AND TABLE WITHIN REACH. WILL ENDORSE TO ONCOMING NURSE FOR JOSE.
--- NOTE | 2021-09-16 19:21 | NUR ---
RN OPENING NOTES RECEIVED PT IN BED, AWAKE.. AOx4, GREEK SPEAKING. ABLE TO MAKE NEEDS KNOWN. ON RA AND TOLERATING WELL. NO SOB NOTED. NO S/SX OF RESPIRATORY DISTRESS NOTED. IV ACCESS IN R HAND #20G. IV IS INTACT, PATENT AND FLUSHING WELL. MIKI AV SHUNT; SHUNT IS INTACT. STATES SHE FEELS NAUSEOUS.WILL ADMINISTER ZOFRAN. SAFETY PRECAUTIONS IN PLACE: BED IN LOWEST, LOCKED POSITION, SIDERAILS UPx2, AND BRAKES ON. CALL LIGHT AND TABLE WITHIN REACH. WILL CONTINUE TO MONITOR.
[2021-09-16] MEDS: ONDANSETRON HCL/PF 4 MG/2 ML VIAL IVP PRN (19:22)
--- NOTE | 2021-09-16 19:22 | NUR ---
ADMINISTERED ZOFRAN FOR NAUSEA PER MD ORDER. VS WNL. WILL CONTINUE TO MONITOR.
[2021-09-16 20:03] LABS: EOSINOPHILS % (MANUAL) 10 % (0-4); LYMPHOCYTES % (MANUAL) 17 % (16-48); MONOCYTES % (MANUAL) 3 % (0-11.0); NEUTROPHILS % (MANUAL) 70 (42-76)
[2021-09-16 20:08] VITALS: BP 161/60
[2021-09-17] MEDS: ONDANSETRON HCL/PF 4 MG/2 ML VIAL IVP PRN ×2 (04:32→13:47)
--- NOTE | 2021-09-17 04:32 | NUR ---
ADMINISTERED ZOFRAN FOR NAUSEA PER MD ORDER. VS WNL. WILL CONTINUE TO MONITOR.
--- NOTE | 2021-09-17 06:39 | NUR ---
RN OPENING NOTES PT IN BED, ASLEEP, AWAKENS TO VERBAL STIMULI. AOx4, PALESTINIAN SPEAKING. ABLE TO MAKE NEEDS KNOWN. ON RA AND TOLERATING WELL. NO SOB NOTED. NO S/SX OF RESPIRATORY DISTRESS NOTED. IV ACCESS IN R HAND #20G. IV IS INTACT, PATENT AND FLUSHING WELL. MIKI AV SHUNT; SHUNT IS INTACT. TREATED NAUSEA THROUGHOUT SHIFT. NO COMPLAINTS OF PAIN THROUGHOUT SHIFT. ALL NEEDS MET. PT KEPT CLEAN AND DRY. SAFETY PRECAUTIONS IN PLACE: BED IN LOWEST, LOCKED POSITION, SIDERAILS UPx2, AND BRAKES ON. CALL LIGHT AND TABLE WITHIN REACH. WILL ENDORSE TO ONCOMING SHIFT FOR JOSE. Addendum: 09/17/21 at 1951 by TI LINK RN SHOULD BE RN CLOSING NOTES
[2021-09-17 07:42] LABS: BASOPHILS % (AUTO) 0.9 % (0.0-2.0); EOSINOPHILS % (AUTO) 7.5 % (0.0-6.0); HEMATOCRIT 39 % (33-45); HEMOGLOBIN 12.7 g/dL (11.5-14.8); LYMPHOCYTES # (AUTO) 0.6 K/uL (0.8-4.8); LYMPHOCYTES % (AUTO) 14.9 % (20.0-44.0); MEAN CORPUSCULAR HGB CONC 33 g/dl (31.0-36.0); MEAN CORPUSCULAR VOLUME 93 fL (82-100); MONOCYTES # (AUTO) 0.3 K/uL (0.1-1.30); MONOCYTES % (AUTO) 6.4 % (2.0-12.0); NEUTROPHILS # (AUTO) 3.1 K/uL (1.8-8.9); NEUTROPHILS % (AUTO) 70.3 % (43.0-81.0); PLATELET COUNT (AUTO) 113 K/uL (150-450); WHITE BLOOD COUNT (AUTO) 4.4 K/uL (4.3-11.0)
[2021-09-17 07:55] LABS: CALCIUM, SERUM 7.5 mg/dL (8.5-10.1); CARBON DIOXIDE 27 mmol/L (21-32); CHLORIDE 97 mmol/L (98-107); CREATININE 5.2 mg/dL (0.6-1.3); GLUCOSE 78 mg/dL (74-106); MAGNESIUM 2.4 mg/dL (1.8-2.4); PHOSPHORUS 4.1 mg/dL (2.5-4.9); POTASSIUM 4.1 mmol/L (3.5-5.1); SODIUM SERUM 134 mmol/L (136-145); UREA NITROGEN, BLOOD 19 mg/dL (7-18)
[2021-09-17 08:00] VITALS: BP 134/49
[2021-09-17] MEDS: FUROSEMIDE 20 MG TABLET PO SCH (08:21)
[2021-09-17] MEDS: ASPIRIN 81 MG TAB.CHEW PO SCH (08:21)
[2021-09-17] MEDS: LEVOTHYROXINE SODIUM 25 MCG TABLET PO SCH (08:21)
[2021-09-17] MEDS: PENTOXIFYLLINE 400 MG TABLET.SA PO SCH ×3 (08:21→17:44)
[2021-09-17] MEDS: CARVEDILOL 12.5 MG TABLET PO SCH ×2 (09:00→20:58)
[2021-09-17] MEDS: VALSARTAN 80 MG TABLET PO SCH (09:00)
--- NOTE | 2021-09-17 09:00 | NUR ---
m/s asbestos pipe supervisor: notes held b/p meds due to possible hd tx today. pt verbalized understanding with the help of macedonian staff translating.
--- NOTE | 2021-09-17 10:00 | NUR ---
m/s radiator repairer: md visit seen by maisha sun (manpower development specialist manager) at this time. pt for d'c planning home today after hd tx per manpower development specialist manager. pt aware.
--- NOTE | 2021-09-17 10:40 | NUR ---
m/s kapok machine operator: notes visiting and made aware re: d'c planning home after hd tx.
[2021-09-17] MEDS ORDERED: CARV12.52 PO (12:33)
[2021-09-17] MEDS ORDERED: VALS80TA2 PO (12:33)
--- NOTE | 2021-09-17 12:35 | NUR ---
m/s head chef: notes received order from maisha sun to discharge pt after hd tx. order acknowledged.
--- NOTE | 2021-09-17 13:47 | NUR ---
m/s frit mixer and burner: notes c/o nausea and vomiting. zofran 4mg ivp by rn as a result. at bedside. pt for hd tx and to go home after. will continue to monitor.
--- NOTE | 2021-09-17 13:50 | NUR ---
m/s personnel worker: nephro f/u seen by dr. matthews with order for hd tx. order acknowledged. called [facility] ([facility]) and will send a nurse in an hour. pt and made aware.
--- NOTE | 2021-09-17 14:17 | NUR ---
m/s contact finger assembler: notes pt with eyes close. no s/s of resp. distress noted. remains at bedside. will continue to monitor.
[2021-09-17 16:00] VITALS: BP 169/64
--- NOTE | 2021-09-17 16:55 | NUR ---
m/s process expert: notes hd tx started at this time. remains at bedside. will continue to monitor.
[2021-09-17] MEDS: ATORVASTATIN 40 MG TABLET PO SCH (17:44)
--- NOTE | 2021-09-17 17:45 | NUR ---
m/s prn occupational therapist: notes hd tx in progress. no a/r noted. at bedside. dinner tray at bedside. for d'c home after hd tx. will continue to monitor.
--- NOTE | 2021-09-17 19:15 | NUR ---
m/s doughnut fryer: notes report given to temitope (rn) for continuity of care. pt still having hd tx and for d'c home after tx. needs attended. will continue to monitor.
--- NOTE | 2021-09-17 19:52 | NUR ---
RN OPENING NOTES RECEIVED PT IN BED, AWAKE. AOx4, GERMAN SPEAKING. ABLE TO MAKE NEEDS KNOWN. ON RA AND TOLERATING WELL. NO SOB NOTED. NO S/SX OF RESPIRATORY DISTRESS NOTED. IV ACCESS IN R HAND #20G. IV IS INTACT, PATENT AND FLUSHING WELL. MIKI AV SHUNT; SHUNT IS INTACT. DIALYSIS NURSE AT BEDSIDE STATES DIALYSIS WILL BE FINISHED AROUND 1999. NO COMPLAINTS OF NAUSEA OR PAIN AT THIS TIME. SAFETY PRECAUTIONS IN PLACE: BED IN LOWEST, LOCKED POSITION, SIDERAILS UPx2, AND BRAKES ON. CALL LIGHT AND TABLE WITHIN REACH. WILL CONTINUE TO MONITOR.
[2021-09-17 20:29] VITALS: BP 113/60
[2021-09-17 20:58] VITALS: BP 144/65
--- NOTE | 2021-09-17 21:02 | NUR ---
DIALYSIS NURSE FINISHED AT ABOUT 2030. 3 LITERS REMOVED PER DIALYSIS NURSE.VS STABLE. WILL CONTINUE TO MONITOR.
--- NOTE | 2021-09-17 21:32 | NUR ---
PATIENT DENIES ANY WEAKNESS
--- NOTE | 2021-09-17 23:08 | NUR ---
DISCHARGE NOTES PATIENT TAKEN DOWN TO LOBBY VIA WHEELCHAIR WITH @2203. PATIENT HAD PRIVATE TRANSPORTATION - [facility]. PROVIDED DISCHARGE EDUCATION. VERIFIED ALL BELONGINGS ARE PRESENT. ALL FORMS SIGNED. IV AND WRISTBAND REMOVED. PATIENT DENIES AND WEAKNESS. VS WNL.
== END 2021-09-17 23:10 | disposition home or self-care (01) | DRG 291 ==
LOC: ER 18:39 → TELE 09-09 00:05 → MED 09-09 01:21 → TELE 09-09 02:18 → MED 09-10 11:13
PROVIDERS: ADMIT Nurse Practitioner Acute Care; ATTEND Nurse Practitioner Family
PROC: 5A1D70Z Performance of Urinary Filtration, Intermittent, Less than 6 Hours Per Day (ICD-10-PCS; 2021-09-09)
PROC: 0W993ZZ Drainage of Right Pleural Cavity, Percutaneous Approach (ICD-10-PCS; principal; 2021-09-12)
DX: I13.2 Hypertensive heart and chronic kidney disease with heart failure and with stage 5 chronic kidney disease, or end stage renal disease (principal); I50.33 Acute on chronic diastolic (congestive) heart failure; N18.6 End stage renal disease; E87.1 Hypo-osmolality and hyponatremia; J98.11 Atelectasis; J94.8 Other specified pleural conditions; J90 Pleural effusion, not elsewhere classified; J95.811 Postprocedural pneumothorax; I25.10 Atherosclerotic heart disease of native coronary artery without angina pectoris; K21.9 Gastro-esophageal reflux disease without esophagitis; D63.1 Anemia in chronic kidney disease; Z20.822 Contact with and (suspected) exposure to COVID-19; E03.9 Hypothyroidism, unspecified; Z99.2 Dependence on renal dialysis; E78.5 Hyperlipidemia, unspecified; Z79.82 Long term (current) use of aspirin; Z79.899 Other long term (current) drug therapy; F32.A Depression, unspecified; E87.6 Hypokalemia; M89.9 Disorder of bone, unspecified; D63.8 Anemia in other chronic diseases classified elsewhere; R09.02 Hypoxemia; E80.6 Other disorders of bilirubin metabolism; Y83.8 Other surgical procedures as the cause of abnormal reaction of the patient, or of later complication, without mention of misadventure at the time of the procedure; Y82.8 Other medical devices associated with adverse incidents; Y92.89 Other specified places as the place of occurrence of the external cause
CPT/HCPCS: 36415; 70486-TC; 71045-TC; 80048-TC; 80061-TC; 80076-TC; 83690-TC; 83735-TC; 83880; 84100-TC; 84155-TC; 84484-TC; 85025-TC; 85730-TC; 86706; 87070-TC; 87075-TC; 87081-TC; 87102-TC; 87340; 89051-TC; 90935-TC; 93307-TC; C9803; G0378; J0360; J1650; J2270; J2405; J7030; J7040; J7070